=== PATIENT | female | born 1945 | race Caucasian/White ===

== ENCOUNTER 2018-07-01 14:08 | Emergency (ER) | payer SELFPAY ==
[~2018-07-01] VITALS: Ht 160 cm; Wt 44.0 kg
[~2018-07-01 14:08] MED LIST: AMLO10 PO; CARB200 PO; LOSA50 PO; NAPR220 PO; OXYB5 PO; VITAMIN D32000 UNIT PO
[2018-07-02] MEDS ORDERED: HYDMOR2 PO (15:36)
== END 2018-07-01 16:30 | disposition home or self-care (01) ==
LOC: ER 14:08
DX: M54.5 Low back pain (principal); I10 Essential (primary) hypertension; F17.200 Nicotine dependence, unspecified, uncomplicated; Z79.899 Other long term (current) drug therapy; W18.30XA Fall on same level, unspecified, initial encounter
CPT/HCPCS: 72100; 99283-25; A9270-GY

== ENCOUNTER 2018-07-02 13:58 | Emergency (ER) | payer SELFPAY ==
[~2018-07-02] VITALS: Ht 157.5 cm; Wt 44.0 kg
[2018-07-02] MEDS ORDERED: HYDMOR2 PO (15:36)
== END 2018-07-02 16:19 | disposition home or self-care (01) ==
LOC: ER 13:58
DX: S32.019A Unspecified fracture of first lumbar vertebra, initial encounter for closed fracture (principal); W18.30XA Fall on same level, unspecified, initial encounter; I10 Essential (primary) hypertension; F17.210 Nicotine dependence, cigarettes, uncomplicated
CPT/HCPCS: 99282

== ENCOUNTER 2018-11-20 08:17 | Emergency (ER) | payer OTHER ==
[~2018-11-20] VITALS: Ht 160 cm; Wt 38.1 kg
[~2018-11-20 08:17] MED LIST changes: +HYDMOR2 PO
[2018-11-20 09:05] LABS: BASOPHILS ABSOLUTE AUTO 0.03 K/mm3 (0.00-0.23); BASOPHILS PERCENT AUTO 0 % (0-2); EOSINOPHILS ABSOLUTE AUTO 0.02 K/mm3 (0.00-0.68); EOSINOPHILS PERCENT AUTO 0 % (0-6); Hematocrit 33.5 % (33.0-51.0); Hemoglobin 11.3 g/dL (11.5-16.0); IMMATURE GRAN ABSOLUTE AUTO 0.02 K/mm3 (0.00-0.10); IMMATURE GRAN PERCENT AUTO 0 % (0-1); LYMPHOCYTES ABSOLUTE AUTO 1.42 K/mm3 (0.84-5.20); LYMPHOCYTES PERCENT AUTO 15 % (21-46); MONOCYTES PERCENT AUTO 6 % (4-13); Mean Corpuscular HGB 33.7 pg (26.0-34.0); Mean Corpuscular HGB Conc 33.7 g/dL (31.5-36.5); Mean Corpuscular Volume 100 fL (80-100); Mean Platelet Volume 8.7 fL (9.1-12.4); NEUTROPHILS ABSOLUTE AUTO 7.34 K/mm3 (1.96-9.15); NEUTROPHILS PERCENT AUTO 78 % (41-73); Platelet Count 228 K/mm3 (150-400); RDW Coefficient Variation 11.9 % (11.7-14.2); RDW Standard Deviation 43.4 fL (35.1-46.3); Red Blood Cell Count 3.35 M/mm3 (3.80-5.20); White Blood Cell Count 9.43 K/mm3 (4.00-11.30)
[2018-11-20 09:20] LABS: Alanine Aminotransfer (ALT/SGP 24 U/L (12-78); Albumin, Blood 3.6 g/dL (3.4-5.0); Albumin/Globulin Ratio 0.9 (0.8-1.8); Alk Phos 111 U/L (50-136); Anion Gap 6 mmol/L (6-16); Aspartate Aminotrans (AST/SGOT 25 U/L (12-37); Bilirubin, Total 0.5 mg/dL (0.1-1.0); Blood Urea Nitrogen 23 mg/dL (8-24); Bun/Creatinine Ratio 40.4 (12.0-20.0); CO2, Blood 30 mmol/L (21-32); Calcium, Blood 9.3 mg/dL (8.5-10.1); Chloride, Blood 100 mmol/L (98-108); Creatinine, Blood 0.57 mg/dL (0.40-1.00); Globulin, Blood 3.9 g/dL (2.2-4.0); Glomerular Filtration Rate >60 (60-); Glucose, Blood 131 mg/dL (70-99); Potassium, Blood 3.1 mmol/L (3.5-5.5); Sodium, Blood 136 mmol/L (136-145); Total Protein, Blood 7.5 g/dL (6.4-8.2); Troponin I <0.015 ng/mL (0.000-0.040)
[2018-11-20 10:32] LABS: Source, Urine Clean Catch
[2018-11-20 10:37] LABS: Appearance, Urine Clear (Clear); Bilirubin, Urine Neg (Neg); Blood, Urine Neg (Neg); Color, Urine Yellow (P-Yellow); Glucose Qualitative, Urine Neg (Neg); Ketones, Urine Neg (Neg); Leukocyte Esterase, Urine Neg (Neg); Nitrite, Urine Pos (Neg); Protein, Urine Neg (Neg); Urobilinogen, Urine NORM (Normal)
[2018-11-20 10:47] LABS: Bacteria Many /hpf; Red Blood Cells, Urine 0-2 /hpf (0-2); Squamous Epithelial Cells Few /hpf (Few); White Blood Cells, Urine 0-2 /hpf (0-5)
[2018-11-20] MEDS ORDERED: Zofran4 MG PO (12:56)
[2018-11-20] MEDS ORDERED: CEPH500 PO (12:56)
== END 2018-11-20 15:49 | disposition home or self-care (01) ==
LOC: ER 08:17
PROVIDERS: Emergency Medicine
DX: N39.0 Urinary tract infection, site not specified (principal); E87.6 Hypokalemia; I10 Essential (primary) hypertension; F17.210 Nicotine dependence, cigarettes, uncomplicated
CPT/HCPCS: 36415; 80053; 81001; 83690; 84484; 85025; 87077; 87086; 87186; 93005; 93010; 96361; 96365; 99284-25; J0696; J7120

== ENCOUNTER 2018-12-10 10:56 | Inpatient (IN) | payer MEDICARE ==
[~2018-12-10] VITALS: Ht 167.6 cm; Wt 40.8 kg
[~2018-12-10 10:56] MED LIST changes: +CEPH500 PO; +Zofran4 MG PO
[2018-12-10] MEDS ORDERED: BENADRYL25 MG PO (11:09)
[2018-12-10] MEDS ORDERED: DONE5 PO (11:10)
[2018-12-10] MEDS ORDERED: TRAZ50 PO (11:10)
[2018-12-10] MEDS ORDERED: NAPR220 PO (11:10)
[2018-12-10] MEDS ORDERED: Oxybutynin Chlo10 MG PO (11:11)
[2018-12-10 12:26] LABS: Source, Urine Catheter
[2018-12-10 12:28] LABS: BASOPHILS PERCENT AUTO 0 % (0-2); EOSINOPHILS PERCENT AUTO 0 % (0-6); Hematocrit 35.9 % (33.0-51.0); Hemoglobin 11.6 g/dL (11.5-16.0); IMMATURE GRAN ABSOLUTE AUTO 0.02 K/mm3 (0.00-0.10); IMMATURE GRAN PERCENT AUTO 0 % (0-1); LYMPHOCYTES ABSOLUTE AUTO 1.35 K/mm3 (0.84-5.20); LYMPHOCYTES PERCENT AUTO 13 % (21-46); MONOCYTES PERCENT AUTO 7 % (4-13); Mean Corpuscular HGB 33.9 pg (26.0-34.0); Mean Corpuscular HGB Conc 32.3 g/dL (31.5-36.5); Mean Corpuscular Volume 105 fL (80-100); Mean Platelet Volume 8.6 fL (9.1-12.4); NEUTROPHILS ABSOLUTE AUTO 8.09 K/mm3 (1.96-9.15); NEUTROPHILS PERCENT AUTO 80 % (41-73); Platelet Count 241 K/mm3 (150-400); RDW Coefficient Variation 11.7 % (11.7-14.2); RDW Standard Deviation 45.4 fL (35.1-46.3); Red Blood Cell Count 3.42 M/mm3 (3.80-5.20); White Blood Cell Count 10.16 K/mm3 (4.00-11.30)
[2018-12-10 12:36] LABS: Bilirubin, Urine Neg (Neg); Blood, Urine Neg (Neg); Glucose Qualitative, Urine Neg (Neg); Ketones, Urine 2+ (Neg); Leukocyte Esterase, Urine 1+ (Neg); Nitrite, Urine Pos (Neg); Protein, Urine 2+ (Neg); Urobilinogen, Urine NORM (Normal)
[2018-12-10 12:46] LABS: Appearance, Urine Clear (Clear); Color, Urine Yellow (P-Yellow)
[2018-12-10 12:47] LABS: Alanine Aminotransfer (ALT/SGP 18 U/L (12-78); Albumin, Blood 3.9 g/dL (3.4-5.0); Alk Phos 103 U/L (50-136); Anion Gap 6 mmol/L (6-16); Aspartate Aminotrans (AST/SGOT 20 U/L (12-37); Bilirubin, Total 0.4 mg/dL (0.1-1.0); Blood Urea Nitrogen 22 mg/dL (8-24); Bun/Creatinine Ratio 36.1 (12.0-20.0); CO2, Blood 28 mmol/L (21-32); Calcium, Blood 9.6 mg/dL (8.5-10.1); Chloride, Blood 108 mmol/L (98-108); Creatinine, Blood 0.61 mg/dL (0.40-1.00); Globulin, Blood 3.9 g/dL (2.2-4.0); Glomerular Filtration Rate >60 (60-); Glucose, Blood 107 mg/dL (70-99); Magnesium, Blood 2.1 mg/dL (1.6-2.4); Potassium, Blood 3.9 mmol/L (3.5-5.5); Sodium, Blood 142 mmol/L (136-145); Total Protein, Blood 7.8 g/dL (6.4-8.2)
[2018-12-10 12:49] LABS: Bacteria Many /hpf; Red Blood Cells, Urine 0-2 /hpf (0-2); Squamous Epithelial Cells Few /hpf (Few)
[2018-12-10 14:42] LABS: Carbamazepine 20.7 ug/mL (4.0-12.0)
--- NOTE | 2018-12-10 15:30 | NUR ---
PT SETTLED TO BED. GIVES ALMOST NO ANSWERS. DID ONCE SAY NAME. NOT ABLE TO ANSWER ANYTHING ELSE. MOVING ARMS AND LEGS IN BED. BED ALARM ON FOR SAFETY, BED IN LOW POSITION, CALL LITE IN REACH.
--- NOTE | 2018-12-10 17:11 | NUR ---
Spiritual Care inital note: Asked by nursing to see this pt. Mrs. Pérez was alone in room, weak and restless, and confused. She was non-verbal. She appeared to calm through touch and warm assurance of care and attention. Prayer provided. I will remain available to pt and family.
--- NOTE | 2018-12-10 19:12 | NUR ---
PT STILL MOVING LEGS AND ARMS IN BED, WIGGLING ABOUT MUCH. NOT SPEAKING AT THIS TIME. BED IN LOW POSITION,C ALL LITE IN REACH, BED ALARM ON FOR SAFETY.
[2018-12-11 03:51] LABS: BASOPHILS ABSOLUTE AUTO 0.03 K/mm3 (0.00-0.23); BASOPHILS PERCENT AUTO 0 % (0-2); EOSINOPHILS PERCENT AUTO 0 % (0-6); Hematocrit 35.1 % (33.0-51.0); Hemoglobin 11.4 g/dL (11.5-16.0); IMMATURE GRAN ABSOLUTE AUTO 0.02 K/mm3 (0.00-0.10); IMMATURE GRAN PERCENT AUTO 0 % (0-1); LYMPHOCYTES ABSOLUTE AUTO 1.92 K/mm3 (0.84-5.20); LYMPHOCYTES PERCENT AUTO 22 % (21-46); MONOCYTES ABSOLUTE AUTO 0.56 K/mm3 (0.16-1.47); MONOCYTES PERCENT AUTO 6 % (4-13); Mean Corpuscular HGB 33.5 pg (26.0-34.0); Mean Corpuscular HGB Conc 32.5 g/dL (31.5-36.5); Mean Corpuscular Volume 103 fL (80-100); Mean Platelet Volume 8.5 fL (9.1-12.4); NEUTROPHILS ABSOLUTE AUTO 6.21 K/mm3 (1.96-9.15); NEUTROPHILS PERCENT AUTO 71 % (41-73); Platelet Count 223 K/mm3 (150-400); RDW Coefficient Variation 11.7 % (11.7-14.2); RDW Standard Deviation 44.8 fL (35.1-46.3); White Blood Cell Count 8.74 K/mm3 (4.00-11.30)
[2018-12-11 04:11] LABS: Alanine Aminotransfer (ALT/SGP 25 U/L (12-78); Albumin, Blood 3.6 g/dL (3.4-5.0); Alk Phos 95 U/L (50-136); Anion Gap 8 mmol/L (6-16); Aspartate Aminotrans (AST/SGOT 23 U/L (12-37); Bilirubin, Total 0.4 mg/dL (0.1-1.0); Blood Urea Nitrogen 15 mg/dL (8-24); Bun/Creatinine Ratio 28.8 (12.0-20.0); CO2, Blood 25 mmol/L (21-32); Calcium, Blood 8.6 mg/dL (8.5-10.1); Chloride, Blood 107 mmol/L (98-108); Creatinine, Blood 0.52 mg/dL (0.40-1.00); Globulin, Blood 3.6 g/dL (2.2-4.0); Glomerular Filtration Rate >60 (60-); Glucose, Blood 102 mg/dL (70-99); Potassium, Blood 3.2 mmol/L (3.5-5.5); Sodium, Blood 140 mmol/L (136-145); Total Protein, Blood 7.2 g/dL (6.4-8.2)
--- NOTE | 2018-12-11 04:37 | NUR ---
SHIFT SUMMARY: PT IS MINIMALLY REPSONSIVE AT THE START OF THE NIGHT, INCREASINGLY RESPONISVE NEAR MORNING, WAS ABLE TO TELL ME HER NAME AND ACKNOWLEDGE THAT SHE IS AT THE HOSPITAL. PT NOT OUT OF BED OVERNIGHT, TOO WEAK TO STAND AT THIS TIME. PT INCONTINENT SEVERAL TIMES, CHANGED AND CLEANED NEEDED. FLUIDS RUNNING ORDERED. PT KEPT NPO ORDERED. PT SHOWS NO S/S FOR PAIN, NAUSEA, VOMITING, OR SOB. PT ASLEEP MOST OF THE NIGHT. BED IN LOW POSITION, CALL LIGHT WITHIN REACH. WILL CONTINUE TO MONITOR.
--- NOTE | 2018-12-11 09:30 | NUR ---
PT PLEASANTLY CONFUSED. MORE AWAKE THAN LAST ARAM. TALKS, BUT CONFUSED. SAYS WANTS HER TO GO HOME. THEN STATES HUSB PASSED FEW MONTHS AGO. STATES THINKS AT HOSP. UNABLE TO TELL HOW OLD, DID GIVE . NOT AWARE OF MONTH OR YEAR. CALLS FOR HUSB AND BROTHER. H/R REG, NO MURMER NOTED. PER TELE NSR AT 79. LUNGS CLEEAR, RESP EASY, UNLABORED. ON R.A. BT X4 LAST BM UNKNOWN. QUITE THIN, EXPECT NOT EATING WELL. VOIDS INCONT IN ATTENDS. NOT TELLING STAFF WHEN WET. PT MOVING ABOUT BED CONSTANTLY. NOT FOLLOWING COMMANDS WELL. BED IN LOW POSITION, CALL LITE IN REACH, BED ALARM ON FOR SAFETY
--- NOTE | 2018-12-11 14:43 | NUR ---
RYAN, BROTHER CALLED [phone]. CALLED IN [place]. PT LIVES ALONE AT HOME. IN RECLINER MUCH OF TIME. USES WALKER AT BASELINE. POSS WHEELCHAIR. THINKS NEEDS HELP.
--- NOTE | 2018-12-11 15:00 | NUR ---
PT TALKING MORE. OFTEN NONSENSICAL. SOMETIMES CLOSER TO REALITY. INTERACTING BETTER. IMPROVEMENT NOTED
--- NOTE | 2018-12-11 17:08 | NUR ---
PT IMPROVED TODAY. DENIES PAIN. TALKING MUCH MORE. REMAINS MOSTLY NONSENSICAL. WATCHING FOOTBALL ON TV. SAYS ALANPierre WATCHES ALL TIME. NOT ATTEMPTING TO GET OUT OF BED, BUT IS QUITE BUSY IN BED. TALKS WHEN TALKED TO, SOMETIMES CALLS OUT, REORIENTS TO SOME DEGREE. ASKS TO GO HOME. NO OTHER CONCERNS AT THIS TIME. BED IN LOW POSITION, CALL LITE IN REACH, BED ALARM ON FOR SAFETY
--- NOTE | 2018-12-11 20:57 | NUR ---
MOVED TO ROOM 10 FOR CLOSER OBSERVATION, PATIENT IS CONFUSED AND SHOUTING OUT.
--- NOTE | 2018-12-12 00:43 | NUR ---
RESTRAINTS: PATIENT PULLED OUT BOTH IV'S, TAKING OFF CLOTHING, TRYING TO GET OOB AND YELLING 'RYAN GET IN HERE AND TAKE ME HOME" (RYAN IS HER BROTHER WHO IS IN [place] AT THIS TIME). PATIENT STATES SHE HEARS HIM TALKING TO HER AND STAFF IS UNABLE TO CONVINCE HER OTHERWISE. MD NOTIFIED AND ORDERS RECIEVED. PATIENT PLACED IN BILATERAL SOFT WRIST RESTARAINTS AND ANOTHE IV WAS STARTED. ASSESSING AND MONITORING CLOSELY WITH INCREASED STAFF ROUNDING. PATIENT MOVED TO ROOM PCU10 TO BE EASILY VISUALIZED BY STAFF.
--- NOTE | 2018-12-12 00:49 | NUR ---
STILL UNABLE TO COMPLETE ADMISSION HX DUE TO PATIENT CONFUSION
[2018-12-12 04:07] LABS: Anion Gap 11 mmol/L (6-16); Blood Urea Nitrogen 12 mg/dL (8-24); Bun/Creatinine Ratio 21.7 (12.0-20.0); CO2, Blood 23 mmol/L (21-32); Calcium, Blood 8.4 mg/dL (8.5-10.1); Chloride, Blood 105 mmol/L (98-108); Creatinine, Blood 0.55 mg/dL (0.40-1.00); Glomerular Filtration Rate >60 (60-); Glucose, Blood 89 mg/dL (70-99); Magnesium, Blood 1.4 mg/dL (1.6-2.4); Sodium, Blood 139 mmol/L (136-145)
--- NOTE | 2018-12-12 05:40 | NUR ---
SHIFT SUMMARY: APPROX 0400 PATIENT STATED THAT SHE SHOULD NOT BE ALIVE RIGHT NOW, WHEN ASKED WHAT SHE MEANT SHE SAID SHE 'SHOULD BE AFTER TAKING THE PILLS'. I ASKED WHAT PILLS SHE MEANT AND SHE SAID, "I TOOK THE WHOLE BOTTLE OF TEGRITOL, I AM SUPPOSED TO BE . MY NEIGHBORS WILL TAKE MY DOG, HE WILL BE SAFE." MD NOTIFIED AND PATIENT PLACED ON LOW SUICIDE PRECAUTIONS. PATIENT IS CONFUSED BUT SEEMS TO HAVE INTERMITTENT PERIODS OF CLARITY.
--- NOTE | 2018-12-12 08:54 | NUR ---
AM NOTE. ASSUMED CARE OF PT APROX 0700, PT IS A&Ox4 WITH MOMENTS OF CONFUSION. PT WAS ADMITTED FOR AMS AND WAS FOUND TO HAVE UTI, PT ALSO ADMITTED TO OVER TAKING HER TEGRATOL MEDICATION AT HOME IN A SUICIDE ATTEMPT. PT IS IN NSR, L/S CLEAR T/O DIM IN THE BASES. BT PRESENT AND NORMOACTIVE. ABD IS SOFT AND NONTENDER TO PALP. PT KEEPS ASKING ABOUT HER BROTHER RYAN, WILL ATTEMPT TO FIND HIS CONTACT INFORMATION. CALL LIGHT IN REACH, BED IS LOCKED AND LOW WILL CONTINUE TO MONITOR.
--- NOTE | 2018-12-12 16:38 | NUR ---
PT UPDATE... PT HAS BEEN CALM AND COOPERATAIVE ALL SHIFT UNTIL APROX 30MINS AGO. PT IS GETTING MORE AGITATED AND CONFUSED STATING "I WANT TO GO HOME, I'LL SIGN ALL THE PAPERS BUT I AM GOING HOME." PT WAS REDIRECTED AND UPDATED ON HER CONDITION. WILL CONTINUE TO MONITOR
--- NOTE | 2018-12-12 18:26 | NUR ---
SHIFT SUMMARY. NO ACUTE NEGATIVE CHANGES NOTED THIS SHIFT. PT'S VS HAVE BEEN STABLE. PT'S AGITATION HAS DECREASED. PT WAS HELPED TO SIT ON THE SIDE OF THE BED AND SHE WAS GIVEN A BEDBATH. PT STATED SHE NEEDED TO HAVE A BM, PT WAS HELPED WITH 2 PEOPLE AND GAIT BELT TO THE BSC. PT TOLERATED THIS WELL, PT'S LEG WERE WEAK BUT PT FOLLOWED DIRECTIONS AND WAS COOPERATIVE. PT SAT UP IN THE CHAIR AFTER USING THE BSC, PT HAD LARGE BM BUT WAS INCONT OF URINE. PT HAS SPOKEN TO HER BROTHER ON THE PHONE MULTIPLE TIMES TODAY. PT SAT UP AND ATE DINNER IN THE CHAIR AND THEN WAS TRANSFERED BACK INTO BED, BED ALARM IS SET. CALL LIGHT IN REACH, BED IS LOCKED AND LOW WILL CONTINUE TO MONITOR UNTIL REPORT IS GIVEN TO ONCOMING RN.
[2018-12-13 04:36] LABS: Anion Gap 6 mmol/L (6-16); Blood Urea Nitrogen 15 mg/dL (8-24); Bun/Creatinine Ratio 29.9 (12.0-20.0); CO2, Blood 25 mmol/L (21-32); Calcium, Blood 8.2 mg/dL (8.5-10.1); Chloride, Blood 105 mmol/L (98-108); Glomerular Filtration Rate >60 (60-); Glucose, Blood 98 mg/dL (70-99); Potassium, Blood 3.7 mmol/L (3.5-5.5); Sodium, Blood 136 mmol/L (136-145)
--- NOTE | 2018-12-13 06:24 | NUR ---
alert and orintated, some opinions expressed by pt do not appear to be based on the reality shared by the staff, call light in reach and frequently used, saline locked, looking forward to moving to tx but remains focused on and dying, will continue to monitor and treat until provide bsr to oncoming day nurse and staff
--- NOTE | 2018-12-13 08:30 | NUR ---
AM NOTE. ASSUMED CARE OF PT APROX 0700 PT IS A&Ox4 AND SBA/2P TO THE CHAIR OR BSC. PT WAS ADMITTED FOR AMS BUT THIS IS IMPROVING. PT'S VS STABLE AT THIS TIME. PT IS IN NSR IN THE 70'S-80'S. NO EDEMA IS NOTED ON ASSESSMENT. L/S CLEAR PT IS ON RA WITH O2 SATS >95%. BT PRESENT AND HYPOACTIVE, ABD IS SOFT AND NONTENDER TO PALP. CALL LIGHT IN REACH, BED IS LOCKED AND LOW WILL CONTINUE TO MONITOR.
--- NOTE | 2018-12-13 18:35 | NUR ---
SHIFT SUMMARY. NO ACUTE NEGATIVE CHANGES NOTED THIS SHIFT. PT'S VS HAVE BEEN STABLE. PT HAS BEEN VERY ANXIOUS TO GO HOME. PT DENIES ANY CHEST PAIN/PRESSURE N/V OR SOB. PT HAS BEEN A&Ox4 T/O SHIFT. PT HAS BEEN INCONT OF URINE ALL SHIFT. CALL LIGHT IN REACH, BED IS LOCKED AND LOW WILL CONTINUE TO MONITOR UNTIL REPORT IS GIVEN TO ONCOMING RN.
--- NOTE | 2018-12-14 06:47 | NUR ---
SHIFT SUMMARY PT CONTINUES TO ANSWER ORIENTATION QUESTIONS APPROPRIATELY THROUGHOUT THE NIGHT, BUT ALSO CONTINUES TO HAVE OCCASIONAL NONSENSICAL THOUGHTS AND WILL RAMBLE TO NO ONE AFTER STAFF LEAVES THE ROOM. PT REMAINS COOPERATIVE WITH CARE. VSS. PT CONTINUES TO EXPRESS WANT TO GO HOME, BUT HAS NOT BECOME IRRITABLE WITH STAFF THROUGHOUT THE NIGHT. PT HAS SLEPT MINIMALLY, CONTINUES TO DENY FEELING TIRED OR DESIRE TO SLEEP. AMBULATES WITH 1-2 PERSON ASSIST AND FWW TO [place] [facility] [place], BUT REMAINS MOSTLY INCONTINENT OF URINE. NO OTHER CHANGES NOTED FROM INITIAL ASSESSMENT. WILL CONTINUE TO MONITOR AND REPORT TO ONCOMING SHIFT RN. BED IN LOW POSITION, CALL LIGHT IN REACH. BED ALARM SET FOR SAFETY.
--- NOTE | 2018-12-14 09:07 | NUR ---
AM NOTE. ASSUMED CARE OF PT APROX 0700, PT IS A&Ox4 FORGETFUL OF THE DATE. PT WAS ADMITTED FOR AMS/ENCEPHALOPATHY. PT'S VS STABLE AT THIS TIME. PT DENIES ANY CHEST PAIN/PRESSURE N/V OR SOB. PT IS ANXIOUS ABOUT LEAVING AND GOING HOME. HOWEVER THIS RN IS CONCERNED ABOUT HER SAFETY AT HOME AND ABILITY TO CARE FOR HERSELF, PT HAS NO FAMILY IN TOWN AND VERY LITTLE RESOURCES OR HELP AVAILABLE TO HER. WILL CONTINUE TO MONITOR.
[2018-12-14] MEDS ORDERED: CIPRO500 MG PO (11:31)
--- NOTE | 2018-12-14 14:39 | NUR ---
PT D/C. PT WAS D/C'D HOME. MEDICATIONS SENT TO PT'S PHARMACY OF CHOICE, MEDICATION EDUCATION AND D/C INSTRUCTIONS PROVIDED TO PT. IV WAS REMOVED WNL. PT DENIED CHEST PAIN/PRESSURE N/V OR SOB.
== END 2018-12-14 14:00 | disposition home or self-care (01) | DRG 689 ==
LOC: ER 10:56 → PCU 14:04
PROVIDERS: Emergency Medicine; Nurse Practitioner Acute Care; ADMIT Internal Medicine
DX: N39.0 Urinary tract infection, site not specified (principal); G92 Toxic encephalopathy; T42.1X1A Poisoning by iminostilbenes, accidental (unintentional), initial encounter; F32.9 Major depressive disorder, single episode, unspecified; I10 Essential (primary) hypertension; G40.909 Epilepsy, unspecified, not intractable, without status epilepticus; F03.90 Unspecified dementia, unspecified severity, without behavioral disturbance, psychotic disturbance, mood disturbance, and anxiety; Z66 Do not resuscitate; B96.20 Unspecified Escherichia coli [E. coli] as the cause of diseases classified elsewhere; E87.6 Hypokalemia; E83.42 Hypomagnesemia; E86.0 Dehydration; Z88.8 Allergy status to other drugs, medicaments and biological substances; Z88.6 Allergy status to analgesic agent; Z91.012 Allergy to eggs; Z91.5 Personal history of self-harm
CPT/HCPCS: 36415; 70450; 71046; 80048; 80053; 80156; 81001; 83605; 83735; 85025; 87040; 87077; 87086; 87186; 92526; 92610; 93005; 93010; 96361; 96365; 97116; 97162; 97166; 97530; 97535; 99285-25; J0696; J1650; J1956; J3475; J7030; J7060; P9612

== ENCOUNTER 2019-04-19 14:42 | Emergency (ER) | payer OTHER ==
[~2019-04-19] VITALS: Ht 157.5 cm; Wt 52.2 kg
[~2019-04-19 14:42] MED LIST changes: -AMLO10 PO; +BENADRYL25 MG PO; +CIPRO500 MG PO; +DONE5 PO; +TRAZ50 PO
[2019-04-19 15:05] LABS: BASOPHILS ABSOLUTE AUTO 0.03 K/mm3 (0.00-0.23); BASOPHILS PERCENT AUTO 0 % (0-2); EOSINOPHILS ABSOLUTE AUTO 0.07 K/mm3 (0.00-0.68); EOSINOPHILS PERCENT AUTO 1 % (0-6); Hemoglobin 11.3 g/dL (11.5-16.0); IMMATURE GRAN ABSOLUTE AUTO 0.02 K/mm3 (0.00-0.10); IMMATURE GRAN PERCENT AUTO 0 % (0-1); LYMPHOCYTES ABSOLUTE AUTO 2.13 K/mm3 (0.84-5.20); LYMPHOCYTES PERCENT AUTO 27 % (21-46); MONOCYTES ABSOLUTE AUTO 0.62 K/mm3 (0.16-1.47); MONOCYTES PERCENT AUTO 8 % (4-13); Mean Corpuscular HGB 33.4 pg (26.0-34.0); Mean Corpuscular HGB Conc 33.2 g/dL (31.5-36.5); Mean Corpuscular Volume 101 fL (80-100); Mean Platelet Volume 8.8 fL (9.1-12.4); NEUTROPHILS ABSOLUTE AUTO 4.96 K/mm3 (1.96-9.15); NEUTROPHILS PERCENT AUTO 63 % (41-73); Platelet Count 180 K/mm3 (150-400); RDW Coefficient Variation 12.2 % (11.7-14.2); RDW Standard Deviation 45.1 fL (35.1-46.3); Red Blood Cell Count 3.38 M/mm3 (3.80-5.20); White Blood Cell Count 7.83 K/mm3 (4.00-11.30)
[2019-04-19 15:29] LABS: Prothrombin Time Results 10.7 Sec (9.7-11.5)
[2019-04-19 15:39] LABS: Alanine Aminotransfer (ALT/SGP 17 U/L (12-78); Albumin, Blood 3.8 g/dL (3.4-5.0); Alk Phos 100 U/L (50-136); Anion Gap 6 mmol/L (6-16); Aspartate Aminotrans (AST/SGOT 19 U/L (12-37); Bilirubin, Total 0.6 mg/dL (0.1-1.0); Blood Urea Nitrogen 15 mg/dL (8-24); Bun/Creatinine Ratio 23.1 (12.0-20.0); CO2, Blood 29 mmol/L (21-32); Calcium, Blood 9.1 mg/dL (8.5-10.1); Chloride, Blood 106 mmol/L (98-108); Creatinine, Blood 0.65 mg/dL (0.40-1.00); Ethanol (Alcohol), Blood, Med <3 mg/dL; Globulin, Blood 3.7 g/dL (2.2-4.0); Glomerular Filtration Rate >60 (60-); Glucose, Blood 95 mg/dL (70-99); Potassium, Blood 3.3 mmol/L (3.5-5.5); Sodium, Blood 141 mmol/L (136-145); Total Protein, Blood 7.5 g/dL (6.4-8.2)
[2019-04-19 16:58] LABS: U Amphetamine Screen Not Detected; U Barbituate Screen Not Detected; U Benzodiazapine Screen Not Detected; U Buprenorphine Screen Not Detected; U Cannabinoids Screen Not Detected; U Cocaine Screen Not Detected; U Methadone Screen Not Detected; U Methamphetamine Screen Not Detected; U Opiates Screen Not Detected; U Oxycodone Screen Not Detected; U Propoxyphene Screen Not Detected
[2019-04-19] MEDS ORDERED: OXYB5 PO (18:31)
[2019-04-19] MEDS ORDERED: AMLO10 PO (18:31)
[2019-04-19] MEDS ORDERED: NAPR500 PO (18:32)
[2019-04-19] MEDS ORDERED: Hair, Skin & N1 EACH PO (18:32)
[2019-04-19] MEDS ORDERED: CARB200 PO (18:32)
[2019-04-19 20:21] LABS: Carbamazepine 19.7 ug/mL (4.0-12.0)
== END 2019-04-19 19:40 | disposition left against medical advice (07) ==
LOC: ER 14:42
PROVIDERS: Internal Medicine; Physician Assistant
DX: I63.9 Cerebral infarction, unspecified (principal); R47.01 Aphasia; R47.81 Slurred speech; I10 Essential (primary) hypertension; F17.210 Nicotine dependence, cigarettes, uncomplicated; Z91.012 Allergy to eggs; Z88.6 Allergy status to analgesic agent; Z88.8 Allergy status to other drugs, medicaments and biological substances; Z79.899 Other long term (current) drug therapy
CPT/HCPCS: 36415; 70450; 80053; 80156; 82947; 83605; 84146; 85025; 85610; 93005; 93010; 96360; 96361; 99285-25; G0480; J7030; P9612

== ENCOUNTER 2019-05-14 15:04 | Inpatient (IN) | payer OTHER, MEDICARE ==
[~2019-05-14] VITALS: Ht 157.5 cm; Wt 35.5 kg
[~2019-05-14 15:04] MED LIST changes: +AMLO10 PO; +Hair, Skin & N1 EACH PO; +Naproxen250 MG PO
[2019-05-14] MEDS ORDERED: Super B-50 Com1 EACH PO (15:13)
[2019-05-14 15:26] LABS: BASOPHILS ABSOLUTE AUTO 0.03 K/mm3 (0.00-0.23); BASOPHILS PERCENT AUTO 0 % (0-2); EOSINOPHILS ABSOLUTE AUTO 0.03 K/mm3 (0.00-0.68); EOSINOPHILS PERCENT AUTO 0 % (0-6); Hematocrit 32.2 % (33.0-51.0); Hemoglobin 10.7 g/dL (11.5-16.0); IMMATURE GRAN ABSOLUTE AUTO 0.01 K/mm3 (0.00-0.10); IMMATURE GRAN PERCENT AUTO 0 % (0-1); LYMPHOCYTES ABSOLUTE AUTO 3.21 K/mm3 (0.84-5.20); LYMPHOCYTES PERCENT AUTO 40 % (21-46); MONOCYTES ABSOLUTE AUTO 0.53 K/mm3 (0.16-1.47); MONOCYTES PERCENT AUTO 7 % (4-13); Mean Corpuscular HGB 33.8 pg (26.0-34.0); Mean Corpuscular HGB Conc 33.2 g/dL (31.5-36.5); Mean Corpuscular Volume 102 fL (80-100); NEUTROPHILS ABSOLUTE AUTO 4.27 K/mm3 (1.96-9.15); NEUTROPHILS PERCENT AUTO 53 % (41-73); Platelet Count 240 K/mm3 (150-400); RDW Coefficient Variation 12.1 % (11.7-14.2); RDW Standard Deviation 45.9 fL (35.1-46.3); Red Blood Cell Count 3.17 M/mm3 (3.80-5.20); White Blood Cell Count 8.08 K/mm3 (4.00-11.30)
[2019-05-14 15:55] LABS: Source, Urine Catheter
[2019-05-14 15:56] LABS: Alanine Aminotransfer (ALT/SGP 16 U/L (12-78); Albumin, Blood 3.5 g/dL (3.4-5.0); Alk Phos 86 U/L (50-136); Anion Gap 4 mmol/L (6-16); Aspartate Aminotrans (AST/SGOT 19 U/L (12-37); Bilirubin, Total 0.5 mg/dL (0.1-1.0); Blood Urea Nitrogen 18 mg/dL (8-24); Bun/Creatinine Ratio 29.2 (12.0-20.0); CO2, Blood 24 mmol/L (21-32); Calcium, Blood 9.1 mg/dL (8.5-10.1); Chloride, Blood 106 mmol/L (98-108); Creatinine, Blood 0.62 mg/dL (0.40-1.00); Ethanol (Alcohol), Blood, Med <3 mg/dL; Globulin, Blood 3.6 g/dL (2.2-4.0); Glomerular Filtration Rate >60 (60-); Glucose, Blood 154 mg/dL (70-99); Potassium, Blood 3.1 mmol/L (3.5-5.5); Sodium, Blood 134 mmol/L (136-145); Total Protein, Blood 7.1 g/dL (6.4-8.2)
[2019-05-14 15:59] LABS: Bilirubin, Urine Neg (Neg); Blood, Urine 1+ (Neg); Glucose Qualitative, Urine Neg (Neg); Ketones, Urine 1+ (Neg); Leukocyte Esterase, Urine 1+ (Neg); Nitrite, Urine Pos (Neg); Protein, Urine 2+ (Neg); Specific Gravity, Urine 1.015 (1.003-1.022); Urobilinogen, Urine NORM (Normal)
[2019-05-14 16:00] LABS: Appearance, Urine Cloudy (Clear); Color, Urine Yellow (P-Yellow)
[2019-05-14 16:08] LABS: Amorphous Mod (0-Heavy); Bacteria Many /hpf; Mucus Light (0-Heavy); Red Blood Cells, Urine 0-2 /hpf (0-2); Squamous Epithelial Cells Few /hpf (Few)
[2019-05-14 16:09] LABS: U Amphetamine Screen Not Detected; U Barbituate Screen Not Detected; U Benzodiazapine Screen Not Detected; U Buprenorphine Screen Not Detected; U Cannabinoids Screen Not Detected; U Cocaine Screen Not Detected; U Methadone Screen Not Detected; U Methamphetamine Screen Not Detected; U Opiates Screen Not Detected; U Oxycodone Screen Not Detected; U Phencyclidine Screen Not Detected; U Propoxyphene Screen Not Detected
[2019-05-14 16:33] LABS: Acetaminophen, Random <2.0 ug/mL (10.0-30.0); Salicylate 6.1 mg/dL (2.8-20.0)
[2019-05-14 16:34] LABS: Carbamazepine 32.2 ug/mL (4.0-12.0)
[2019-05-14 17:36] LABS: CPK Creatine Kinase 33 U/L (26-193); Creatine Kinase MB <1.0 ng/mL (0.0-3.6); Creatine Kinase MB Index Unable to Calculate (0.0-4.0); Magnesium, Blood 1.9 mg/dL (1.6-2.4); Phosphorus, Blood 2.6 mg/dL (2.5-4.9); Troponin I <0.015 ng/mL (0.000-0.040)
[2019-05-14 18:58] LABS: Carbamazepine 34.2 ug/mL (4.0-12.0)
[2019-05-14 23:55] LABS: Carbamazepine 26.7 ug/mL (4.0-12.0)
[2019-05-15 05:57] LABS: Creatine Kinase MB 1.5 ng/mL (0.0-3.6); Creatine Kinase MB Index 2.5 (0.0-4.0); Magnesium, Blood 1.7 mg/dL (1.6-2.4); Phosphorus, Blood 2.4 mg/dL (2.5-4.9); Troponin I 0.152 ng/mL (0.000-0.040)
[2019-05-15 06:12] LABS: Carbamazepine 24.8 ug/mL (4.0-12.0)
[2019-05-15 09:10] LABS: BASOPHILS ABSOLUTE AUTO 0.02 K/mm3 (0.00-0.23); BASOPHILS PERCENT AUTO 0 % (0-2); EOSINOPHILS ABSOLUTE AUTO 0.01 K/mm3 (0.00-0.68); EOSINOPHILS PERCENT AUTO 0 % (0-6); Hematocrit 30.3 % (33.0-51.0); Hemoglobin 9.8 g/dL (11.5-16.0); IMMATURE GRAN ABSOLUTE AUTO 0.01 K/mm3 (0.00-0.10); IMMATURE GRAN PERCENT AUTO 0 % (0-1); LYMPHOCYTES ABSOLUTE AUTO 1.76 K/mm3 (0.84-5.20); LYMPHOCYTES PERCENT AUTO 25 % (21-46); MONOCYTES ABSOLUTE AUTO 0.56 K/mm3 (0.16-1.47); MONOCYTES PERCENT AUTO 8 % (4-13); Mean Corpuscular HGB Conc 32.3 g/dL (31.5-36.5); NEUTROPHILS ABSOLUTE AUTO 4.78 K/mm3 (1.96-9.15); NEUTROPHILS PERCENT AUTO 67 % (41-73); Platelet Count 178 K/mm3 (150-400); RDW Coefficient Variation 12.2 % (11.7-14.2); RDW Standard Deviation 47.1 fL (35.1-46.3); Red Blood Cell Count 2.88 M/mm3 (3.80-5.20); White Blood Cell Count 7.14 K/mm3 (4.00-11.30)
[2019-05-15 09:11] LABS: Mean Corpuscular Volume 105 fL (80-100)
[2019-05-15 09:31] LABS: Alanine Aminotransfer (ALT/SGP 15 U/L (12-78); Albumin/Globulin Ratio 0.9 (0.8-1.8); Alk Phos 75 U/L (50-136); Anion Gap 5 mmol/L (6-16); Aspartate Aminotrans (AST/SGOT 19 U/L (12-37); Bilirubin, Total 0.3 mg/dL (0.1-1.0); Blood Urea Nitrogen 13 mg/dL (8-24); Bun/Creatinine Ratio 29.7 (12.0-20.0); CO2, Blood 23 mmol/L (21-32); Calcium, Blood 8.3 mg/dL (8.5-10.1); Chloride, Blood 114 mmol/L (98-108); Creatinine, Blood 0.44 mg/dL (0.40-1.00); Globulin, Blood 3.5 g/dL (2.2-4.0); Glomerular Filtration Rate >60 (60-); Glucose, Blood 87 mg/dL (70-99); Potassium, Blood 3.9 mmol/L (3.5-5.5); Sodium, Blood 142 mmol/L (136-145); Total Protein, Blood 6.5 g/dL (6.4-8.2)
[2019-05-15 15:20] LABS: Base Excess Venous -5.6 mmol/L; Bicarbonate Venous 19.8 mmol/L (24.0-30.0); PCO2 Venous 33.7 mmHg (38-42); PO2 Venous 36.5 mmHg (38-42); pH Blood Venous 7.37 (7.34-7.37)
[2019-05-15 15:39] LABS: BASOPHILS ABSOLUTE AUTO 0.02 K/mm3 (0.00-0.23); BASOPHILS PERCENT AUTO 0 % (0-2); EOSINOPHILS ABSOLUTE AUTO 0.02 K/mm3 (0.00-0.68); EOSINOPHILS PERCENT AUTO 0 % (0-6); Hematocrit 28.3 % (33.0-51.0); Hemoglobin 9.3 g/dL (11.5-16.0); IMMATURE GRAN ABSOLUTE AUTO 0.02 K/mm3 (0.00-0.10); IMMATURE GRAN PERCENT AUTO 0 % (0-1); LYMPHOCYTES ABSOLUTE AUTO 1.87 K/mm3 (0.84-5.20); LYMPHOCYTES PERCENT AUTO 31 % (21-46); MONOCYTES PERCENT AUTO 7 % (4-13); Mean Corpuscular HGB 34.3 pg (26.0-34.0); Mean Corpuscular HGB Conc 32.9 g/dL (31.5-36.5); Mean Corpuscular Volume 104 fL (80-100); NEUTROPHILS ABSOLUTE AUTO 3.71 K/mm3 (1.96-9.15); NEUTROPHILS PERCENT AUTO 62 % (41-73); Platelet Count 188 K/mm3 (150-400); RDW Coefficient Variation 12.3 % (11.7-14.2); RDW Standard Deviation 47.2 fL (35.1-46.3); Red Blood Cell Count 2.71 M/mm3 (3.80-5.20); White Blood Cell Count 6.04 K/mm3 (4.00-11.30)
[2019-05-15 15:47] LABS: Anion Gap 2 mmol/L (6-16); Blood Urea Nitrogen 12 mg/dL (8-24); Bun/Creatinine Ratio 24.4 (12.0-20.0); CO2, Blood 22 mmol/L (21-32); Calcium, Blood 7.7 mg/dL (8.5-10.1); Chloride, Blood 119 mmol/L (98-108); Creatinine, Blood 0.49 mg/dL (0.40-1.00); Glomerular Filtration Rate >60 (60-); Glucose, Blood 116 mg/dL (70-99); Potassium, Blood 4.2 mmol/L (3.5-5.5); Sodium, Blood 143 mmol/L (136-145)
[2019-05-15 15:58] LABS: International Normalized Ratio 1.07; Prothrombin Time Results 11.4 Sec (9.7-11.5)
[2019-05-15 17:44] LABS: Carbamazepine 30.4 ug/mL (4.0-12.0)
[2019-05-15 23:36] LABS: Salicylate 6.8 mg/dL (2.8-20.0)
[2019-05-16 04:47] LABS: BASOPHILS ABSOLUTE AUTO 0.02 K/mm3 (0.00-0.23); BASOPHILS PERCENT AUTO 0 % (0-2); EOSINOPHILS PERCENT AUTO 0 % (0-6); Hematocrit 30.2 % (33.0-51.0); IMMATURE GRAN ABSOLUTE AUTO 0.06 K/mm3 (0.00-0.10); IMMATURE GRAN PERCENT AUTO 1 % (0-1); LYMPHOCYTES ABSOLUTE AUTO 0.59 K/mm3 (0.84-5.20); LYMPHOCYTES PERCENT AUTO 5 % (21-46); MONOCYTES ABSOLUTE AUTO 0.71 K/mm3 (0.16-1.47); MONOCYTES PERCENT AUTO 6 % (4-13); Mean Corpuscular HGB 34.8 pg (26.0-34.0); Mean Corpuscular HGB Conc 33.1 g/dL (31.5-36.5); Mean Corpuscular Volume 105 fL (80-100); Mean Platelet Volume 9.2 fL (9.1-12.4); NEUTROPHILS ABSOLUTE AUTO 10.24 K/mm3 (1.96-9.15); NEUTROPHILS PERCENT AUTO 88 % (41-73); Platelet Count 146 K/mm3 (150-400); RDW Coefficient Variation 12.4 % (11.7-14.2); RDW Standard Deviation 48.3 fL (35.1-46.3); Red Blood Cell Count 2.87 M/mm3 (3.80-5.20); White Blood Cell Count 11.62 K/mm3 (4.00-11.30)
[2019-05-16 05:02] LABS: Anion Gap 5 mmol/L (6-16); Blood Urea Nitrogen 16 mg/dL (8-24); Bun/Creatinine Ratio 26.4 (12.0-20.0); CO2, Blood 22 mmol/L (21-32); Calcium, Blood 7.8 mg/dL (8.5-10.1); Chloride, Blood 120 mmol/L (98-108); Creatinine, Blood 0.61 mg/dL (0.40-1.00); Glomerular Filtration Rate >60 (60-); Glucose, Blood 104 mg/dL (70-99); Magnesium, Blood 1.6 mg/dL (1.6-2.4); Potassium, Blood 4.1 mmol/L (3.5-5.5); Sodium, Blood 147 mmol/L (136-145)
[2019-05-16 07:54] LABS: Carbamazepine 20.6 ug/mL (4.0-12.0)
[2019-05-16 23:57] LABS: Carbamazepine 22.8 ug/mL (4.0-12.0)
[2019-05-17 05:19] LABS: BASOPHILS ABSOLUTE AUTO 0.02 K/mm3 (0.00-0.23); BASOPHILS PERCENT AUTO 0 % (0-2); EOSINOPHILS PERCENT AUTO 0 % (0-6); Hematocrit 24.7 % (33.0-51.0); Hemoglobin 8.2 g/dL (11.5-16.0); IMMATURE GRAN ABSOLUTE AUTO 0.04 K/mm3 (0.00-0.10); IMMATURE GRAN PERCENT AUTO 1 % (0-1); LYMPHOCYTES ABSOLUTE AUTO 1.23 K/mm3 (0.84-5.20); LYMPHOCYTES PERCENT AUTO 17 % (21-46); MONOCYTES ABSOLUTE AUTO 0.44 K/mm3 (0.16-1.47); MONOCYTES PERCENT AUTO 6 % (4-13); Mean Corpuscular HGB 34.5 pg (26.0-34.0); Mean Corpuscular HGB Conc 33.2 g/dL (31.5-36.5); Mean Corpuscular Volume 104 fL (80-100); Mean Platelet Volume 9.4 fL (9.1-12.4); NEUTROPHILS ABSOLUTE AUTO 5.38 K/mm3 (1.96-9.15); NEUTROPHILS PERCENT AUTO 76 % (41-73); Platelet Count 112 K/mm3 (150-400); RDW Coefficient Variation 12.8 % (11.7-14.2); RDW Standard Deviation 47.8 fL (35.1-46.3); Red Blood Cell Count 2.38 M/mm3 (3.80-5.20); White Blood Cell Count 7.11 K/mm3 (4.00-11.30)
[2019-05-17 05:42] LABS: Anion Gap 4 mmol/L (6-16); Blood Urea Nitrogen 26 mg/dL (8-24); Bun/Creatinine Ratio 46.5 (12.0-20.0); CO2, Blood 25 mmol/L (21-32); Calcium, Blood 8.1 mg/dL (8.5-10.1); Chloride, Blood 117 mmol/L (98-108); Creatinine, Blood 0.56 mg/dL (0.40-1.00); Glomerular Filtration Rate >60 (60-); Glucose, Blood 130 mg/dL (70-99); Magnesium, Blood 1.9 mg/dL (1.6-2.4); Phosphorus, Blood 1.9 mg/dL (2.5-4.9); Potassium, Blood 3.4 mmol/L (3.5-5.5); Sodium, Blood 146 mmol/L (136-145)
[2019-05-17 05:51] LABS: Carbamazepine 17.7 ug/mL (4.0-12.0)
[2019-05-17 12:21] LABS: Carbamazepine 17.8 ug/mL (4.0-12.0)
[2019-05-18 04:35] LABS: BASOPHILS ABSOLUTE AUTO 0.05 K/mm3 (0.00-0.23); BASOPHILS PERCENT AUTO 1 % (0-2); EOSINOPHILS ABSOLUTE AUTO 0.02 K/mm3 (0.00-0.68); EOSINOPHILS PERCENT AUTO 0 % (0-6); Hematocrit 26.4 % (33.0-51.0); IMMATURE GRAN ABSOLUTE AUTO 0.03 K/mm3 (0.00-0.10); IMMATURE GRAN PERCENT AUTO 0 % (0-1); LYMPHOCYTES ABSOLUTE AUTO 1.58 K/mm3 (0.84-5.20); LYMPHOCYTES PERCENT AUTO 18 % (21-46); MONOCYTES ABSOLUTE AUTO 0.57 K/mm3 (0.16-1.47); MONOCYTES PERCENT AUTO 6 % (4-13); Mean Corpuscular HGB 34.5 pg (26.0-34.0); Mean Corpuscular HGB Conc 34.1 g/dL (31.5-36.5); Mean Corpuscular Volume 101 fL (80-100); Mean Platelet Volume 9.8 fL (9.1-12.4); NEUTROPHILS ABSOLUTE AUTO 6.67 K/mm3 (1.96-9.15); NEUTROPHILS PERCENT AUTO 75 % (41-73); Platelet Count 124 K/mm3 (150-400); RDW Coefficient Variation 12.6 % (11.7-14.2); RDW Standard Deviation 46.8 fL (35.1-46.3); Red Blood Cell Count 2.61 M/mm3 (3.80-5.20); White Blood Cell Count 8.92 K/mm3 (4.00-11.30)
[2019-05-18 05:02] LABS: Alanine Aminotransfer (ALT/SGP 417 U/L (12-78); Albumin, Blood 2.2 g/dL (3.4-5.0); Albumin/Globulin Ratio 0.8 (0.8-1.8); Alk Phos 60 U/L (50-136); Anion Gap 5 mmol/L (6-16); Aspartate Aminotrans (AST/SGOT 351 U/L (12-37); Bilirubin, Total 0.2 mg/dL (0.1-1.0); Blood Urea Nitrogen 22 mg/dL (8-24); Bun/Creatinine Ratio 42.6 (12.0-20.0); CO2, Blood 26 mmol/L (21-32); Calcium, Blood 7.6 mg/dL (8.5-10.1); Chloride, Blood 109 mmol/L (98-108); Creatinine, Blood 0.52 mg/dL (0.40-1.00); Globulin, Blood 2.9 g/dL (2.2-4.0); Glomerular Filtration Rate >60 (60-); Glucose, Blood 126 mg/dL (70-99); Potassium, Blood 3.2 mmol/L (3.5-5.5); Sodium, Blood 140 mmol/L (136-145); Total Protein, Blood 5.1 g/dL (6.4-8.2)
[2019-05-19 04:41] LABS: BASOPHILS ABSOLUTE AUTO 0.03 K/mm3 (0.00-0.23); BASOPHILS PERCENT AUTO 0 % (0-2); EOSINOPHILS ABSOLUTE AUTO 0.05 K/mm3 (0.00-0.68); EOSINOPHILS PERCENT AUTO 1 % (0-6); Hematocrit 27.6 % (33.0-51.0); Hemoglobin 9.5 g/dL (11.5-16.0); IMMATURE GRAN ABSOLUTE AUTO 0.03 K/mm3 (0.00-0.10); IMMATURE GRAN PERCENT AUTO 0 % (0-1); LYMPHOCYTES ABSOLUTE AUTO 1.07 K/mm3 (0.84-5.20); LYMPHOCYTES PERCENT AUTO 12 % (21-46); MONOCYTES ABSOLUTE AUTO 0.58 K/mm3 (0.16-1.47); MONOCYTES PERCENT AUTO 6 % (4-13); Mean Corpuscular HGB 34.4 pg (26.0-34.0); Mean Corpuscular HGB Conc 34.4 g/dL (31.5-36.5); Mean Corpuscular Volume 100 fL (80-100); Mean Platelet Volume 9.5 fL (9.1-12.4); NEUTROPHILS ABSOLUTE AUTO 7.43 K/mm3 (1.96-9.15); NEUTROPHILS PERCENT AUTO 81 % (41-73); Platelet Count 140 K/mm3 (150-400); RDW Coefficient Variation 12.7 % (11.7-14.2); RDW Standard Deviation 45.5 fL (35.1-46.3); Red Blood Cell Count 2.76 M/mm3 (3.80-5.20); White Blood Cell Count 9.19 K/mm3 (4.00-11.30)
[2019-05-19 05:40] LABS: Anion Gap 7 mmol/L (6-16); Blood Urea Nitrogen 15 mg/dL (8-24); Bun/Creatinine Ratio 27.5 (12.0-20.0); CO2, Blood 24 mmol/L (21-32); Chloride, Blood 107 mmol/L (98-108); Creatinine, Blood 0.55 mg/dL (0.40-1.00); Glomerular Filtration Rate >60 (60-); Glucose, Blood 96 mg/dL (70-99); Phosphorus, Blood 2.9 mg/dL (2.5-4.9); Potassium, Blood 3.7 mmol/L (3.5-5.5); Sodium, Blood 138 mmol/L (136-145)
[2019-05-20 05:16] LABS: BASOPHILS ABSOLUTE AUTO 0.02 K/mm3 (0.00-0.23); BASOPHILS PERCENT AUTO 0 % (0-2); EOSINOPHILS ABSOLUTE AUTO 0.13 K/mm3 (0.00-0.68); EOSINOPHILS PERCENT AUTO 2 % (0-6); Hematocrit 27.4 % (33.0-51.0); Hemoglobin 9.2 g/dL (11.5-16.0); IMMATURE GRAN ABSOLUTE AUTO 0.02 K/mm3 (0.00-0.10); IMMATURE GRAN PERCENT AUTO 0 % (0-1); LYMPHOCYTES ABSOLUTE AUTO 1.13 K/mm3 (0.84-5.20); LYMPHOCYTES PERCENT AUTO 15 % (21-46); MONOCYTES ABSOLUTE AUTO 0.59 K/mm3 (0.16-1.47); MONOCYTES PERCENT AUTO 8 % (4-13); Mean Corpuscular HGB 33.9 pg (26.0-34.0); Mean Corpuscular HGB Conc 33.6 g/dL (31.5-36.5); Mean Corpuscular Volume 101 fL (80-100); Mean Platelet Volume 9.8 fL (9.1-12.4); NEUTROPHILS ABSOLUTE AUTO 5.59 K/mm3 (1.96-9.15); NEUTROPHILS PERCENT AUTO 75 % (41-73); Platelet Count 125 K/mm3 (150-400); RDW Coefficient Variation 12.4 % (11.7-14.2); RDW Standard Deviation 44.8 fL (35.1-46.3); Red Blood Cell Count 2.71 M/mm3 (3.80-5.20); White Blood Cell Count 7.48 K/mm3 (4.00-11.30)
[2019-05-20 05:20] LABS: Albumin, Blood 2.2 g/dL (3.4-5.0); Anion Gap 5 mmol/L (6-16); Blood Urea Nitrogen 20 mg/dL (8-24); Bun/Creatinine Ratio 38.1 (12.0-20.0); CO2, Blood 27 mmol/L (21-32); Calcium, Blood 7.9 mg/dL (8.5-10.1); Chloride, Blood 108 mmol/L (98-108); Creatinine, Blood 0.53 mg/dL (0.40-1.00); Glomerular Filtration Rate >60 (60-); Glucose, Blood 121 mg/dL (70-99); Phosphorus, Blood 3.1 mg/dL (2.5-4.9); Potassium, Blood 3.5 mmol/L (3.5-5.5); Sodium, Blood 140 mmol/L (136-145)
[2019-05-21 04:51] LABS: BASOPHILS ABSOLUTE AUTO 0.03 K/mm3 (0.00-0.23); BASOPHILS PERCENT AUTO 0 % (0-2); EOSINOPHILS ABSOLUTE AUTO 0.21 K/mm3 (0.00-0.68); EOSINOPHILS PERCENT AUTO 3 % (0-6); Hematocrit 26.4 % (33.0-51.0); Hemoglobin 8.9 g/dL (11.5-16.0); IMMATURE GRAN ABSOLUTE AUTO 0.02 K/mm3 (0.00-0.10); IMMATURE GRAN PERCENT AUTO 0 % (0-1); LYMPHOCYTES ABSOLUTE AUTO 1.32 K/mm3 (0.84-5.20); LYMPHOCYTES PERCENT AUTO 17 % (21-46); MONOCYTES ABSOLUTE AUTO 0.73 K/mm3 (0.16-1.47); MONOCYTES PERCENT AUTO 9 % (4-13); Mean Corpuscular HGB 34.2 pg (26.0-34.0); Mean Corpuscular HGB Conc 33.7 g/dL (31.5-36.5); Mean Corpuscular Volume 102 fL (80-100); Mean Platelet Volume 9.7 fL (9.1-12.4); NEUTROPHILS ABSOLUTE AUTO 5.61 K/mm3 (1.96-9.15); NEUTROPHILS PERCENT AUTO 71 % (41-73); Platelet Count 131 K/mm3 (150-400); RDW Coefficient Variation 12.8 % (11.7-14.2); RDW Standard Deviation 45.8 fL (35.1-46.3); White Blood Cell Count 7.92 K/mm3 (4.00-11.30)
[2019-05-21 05:07] LABS: Anion Gap 4 mmol/L (6-16); Blood Urea Nitrogen 25 mg/dL (8-24); Bun/Creatinine Ratio 48.4 (12.0-20.0); CO2, Blood 26 mmol/L (21-32); Calcium, Blood 8.4 mg/dL (8.5-10.1); Chloride, Blood 108 mmol/L (98-108); Creatinine, Blood 0.52 mg/dL (0.40-1.00); Glomerular Filtration Rate >60 (60-); Glucose, Blood 114 mg/dL (70-99); Potassium, Blood 3.9 mmol/L (3.5-5.5); Sodium, Blood 138 mmol/L (136-145)
[2019-05-22 05:28] LABS: BASOPHILS ABSOLUTE AUTO 0.02 K/mm3 (0.00-0.23); BASOPHILS PERCENT AUTO 0 % (0-2); EOSINOPHILS ABSOLUTE AUTO 0.13 K/mm3 (0.00-0.68); EOSINOPHILS PERCENT AUTO 2 % (0-6); Hematocrit 25.1 % (33.0-51.0); Hemoglobin 8.2 g/dL (11.5-16.0); IMMATURE GRAN ABSOLUTE AUTO 0.02 K/mm3 (0.00-0.10); IMMATURE GRAN PERCENT AUTO 0 % (0-1); LYMPHOCYTES ABSOLUTE AUTO 1.35 K/mm3 (0.84-5.20); LYMPHOCYTES PERCENT AUTO 17 % (21-46); MONOCYTES ABSOLUTE AUTO 0.78 K/mm3 (0.16-1.47); MONOCYTES PERCENT AUTO 10 % (4-13); Mean Corpuscular HGB 33.7 pg (26.0-34.0); Mean Corpuscular HGB Conc 32.7 g/dL (31.5-36.5); Mean Corpuscular Volume 103 fL (80-100); Mean Platelet Volume 9.8 fL (9.1-12.4); NEUTROPHILS ABSOLUTE AUTO 5.49 K/mm3 (1.96-9.15); NEUTROPHILS PERCENT AUTO 70 % (41-73); Platelet Count 145 K/mm3 (150-400); RDW Standard Deviation 47.1 fL (35.1-46.3); Red Blood Cell Count 2.43 M/mm3 (3.80-5.20); White Blood Cell Count 7.79 K/mm3 (4.00-11.30)
[2019-05-22 05:48] LABS: Anion Gap 4 mmol/L (6-16); Blood Urea Nitrogen 28 mg/dL (8-24); Bun/Creatinine Ratio 65.7 (12.0-20.0); CO2, Blood 25 mmol/L (21-32); Calcium, Blood 8.2 mg/dL (8.5-10.1); Chloride, Blood 107 mmol/L (98-108); Creatinine, Blood 0.43 mg/dL (0.40-1.00); Glomerular Filtration Rate >60 (60-); Glucose, Blood 106 mg/dL (70-99); Potassium, Blood 4.2 mmol/L (3.5-5.5); Sodium, Blood 136 mmol/L (136-145)
[2019-06-02] MEDS ORDERED: Culturelle1 CAP PO (08:48)
[2019-06-02] MEDS ORDERED: ACET325 PO (08:48)
[2019-06-02] MEDS ORDERED: BISA10S PR (08:48)
[2019-06-02] MEDS ORDERED: Prinivil10 MG PO (08:49)
[2019-06-02] MEDS ORDERED: LEVE500 PO (08:49)
== END 2019-06-02 13:41 | disposition home health service (06) | DRG 917 ==
LOC: ER 15:04 → ICUE 17:08 → ICUW 17:08 → SURS 17:08 → ICUE 18:57 → SURS 05-18 15:05 → MEDS 05-31 15:31 → ENPENDDIS 06-02 11:42 → MEDS 06-02 13:41
PROVIDERS: Emergency Medicine; Internal Medicine Pulmonary Disease; ADMIT Family Medicine
PROC: 05HM33Z Insertion of Infusion Device into Right Internal Jugular Vein, Percutaneous Approach (ICD-10-PCS; principal; 2019-05-15)
DX: T42.1X4A Poisoning by iminostilbenes, undetermined, initial encounter (principal); G92 Toxic encephalopathy; N39.0 Urinary tract infection, site not specified; E44.0 Moderate protein-calorie malnutrition; Z68.1 Body mass index [BMI] 19.9 or less, adult; Z66 Do not resuscitate; F32.9 Major depressive disorder, single episode, unspecified; I10 Essential (primary) hypertension; G40.909 Epilepsy, unspecified, not intractable, without status epilepticus; E87.6 Hypokalemia; G47.00 Insomnia, unspecified; I95.9 Hypotension, unspecified; F17.210 Nicotine dependence, cigarettes, uncomplicated; I69.320 Aphasia following cerebral infarction; R00.1 Bradycardia, unspecified; I45.5 Other specified heart block; G30.9 Alzheimer's disease, unspecified; F02.80 Dementia in other diseases classified elsewhere, unspecified severity, without behavioral disturbance, psychotic disturbance, mood disturbance, and anxiety
CPT/HCPCS: 36415; 36556; 51702; 70450; 71045; 80048; 80053; 80069; 80156; 81001; 82330; 82550; 82553; 82803; 82947; 83605; 83735; 84100; 84145; 84146; 84443; 84484; 85025; 85610; 87040; 87077; 87086; 87186; 92526; 92610; 93005; 93010; 93306; 94660; 96361-59; 96365-59; 96368; 97110; 97163; 97166; 97530; 97535; 99285-25; A9270; C1751; G0480; J0360; J0461; J0696; J1650; J1953; J2060; J2405; J3480; J7030; J7040; J7060; J7070; J7120

== ENCOUNTER 2019-06-05 10:25 | Emergency (ER) | payer OTHER ==
[~2019-06-05] VITALS: Ht 162.6 cm; Wt 43.1 kg
[~2019-06-05 10:25] MED LIST changes: +ACET325 PO; +BISA10S PR; +Culturelle1 CAP PO; +LEVE500 PO; +Prinivil10 MG PO; +Super B-50 Com1 EACH PO
[2019-06-05] MEDS ORDERED: CARB200ER PO (10:40)
[2019-06-05] MEDS ORDERED: HYDR1TAB94 PO (12:21)
== END 2019-06-05 13:22 | disposition home or self-care (01) ==
LOC: ER 10:25
DX: S42.035A Nondisplaced fracture of lateral end of left clavicle, initial encounter for closed fracture (principal); I10 Essential (primary) hypertension; G40.909 Epilepsy, unspecified, not intractable, without status epilepticus; F03.90 Unspecified dementia, unspecified severity, without behavioral disturbance, psychotic disturbance, mood disturbance, and anxiety; F32.9 Major depressive disorder, single episode, unspecified; Z88.6 Allergy status to analgesic agent; Z91.012 Allergy to eggs; Z88.8 Allergy status to other drugs, medicaments and biological substances; Z86.73 Personal history of transient ischemic attack (TIA), and cerebral infarction without residual deficits; F17.210 Nicotine dependence, cigarettes, uncomplicated; W18.30XA Fall on same level, unspecified, initial encounter
CPT/HCPCS: 70450; 72125; 73030; 99284-25

== ENCOUNTER 2019-08-25 21:48 | Observation (INO) | payer OTHER, MEDICARE ==
[~2019-08-25] VITALS: Ht 157.5 cm; Wt 31.2 kg
[~2019-08-25 21:48] MED LIST changes: +CARB200ER PO; +CULTURELLE HEA1 EACH PO; -Culturelle1 CAP PO; +HYDR1TAB94 PO; -Super B-50 Com1 EACH PO; +Vitamin B Comple1 EA PO
[2019-08-25 22:26] LABS: BASOPHILS ABSOLUTE AUTO 0.04 K/mm3 (0.00-0.23); BASOPHILS PERCENT AUTO 0 % (0-2); EOSINOPHILS ABSOLUTE AUTO 0.02 K/mm3 (0.00-0.68); EOSINOPHILS PERCENT AUTO 0 % (0-6); Hematocrit 32.9 % (33.0-51.0); IMMATURE GRAN ABSOLUTE AUTO 0.09 K/mm3 (0.00-0.10); IMMATURE GRAN PERCENT AUTO 1 % (0-1); LYMPHOCYTES ABSOLUTE AUTO 1.38 K/mm3 (0.84-5.20); LYMPHOCYTES PERCENT AUTO 9 % (21-46); MONOCYTES ABSOLUTE AUTO 0.73 K/mm3 (0.16-1.47); MONOCYTES PERCENT AUTO 5 % (4-13); Mean Corpuscular HGB 32.6 pg (26.0-34.0); Mean Corpuscular HGB Conc 33.4 g/dL (31.5-36.5); Mean Corpuscular Volume 98 fL (80-100); NEUTROPHILS ABSOLUTE AUTO 13.76 K/mm3 (1.96-9.15); NEUTROPHILS PERCENT AUTO 86 % (41-73); RDW Standard Deviation 45.8 fL (35.1-46.3); Red Blood Cell Count 3.37 M/mm3 (3.80-5.20); White Blood Cell Count 16.02 K/mm3 (4.00-11.30)
[2019-08-25 22:31] LABS: Mean Platelet Volume 9.2 fL (9.1-12.4); Platelet Count 206 K/mm3 (150-400)
[2019-08-25 22:45] LABS: Ethanol (Alcohol), Blood, Med <3 mg/dL; Salicylate 3.8 mg/dL (2.8-20.0); Troponin I <0.015 ng/mL (0.000-0.040)
[2019-08-25 22:48] LABS: Alanine Aminotransfer (ALT/SGP 19 U/L (12-78); Albumin, Blood 3.6 g/dL (3.4-5.0); Alk Phos 103 U/L (50-136); Anion Gap 6 mmol/L (6-16); Aspartate Aminotrans (AST/SGOT 23 U/L (12-37); Bilirubin, Total 0.3 mg/dL (0.1-1.0); Blood Urea Nitrogen 21 mg/dL (8-24); Bun/Creatinine Ratio 30.6 (12.0-20.0); CO2, Blood 30 mmol/L (21-32); Calcium, Blood 9.1 mg/dL (8.5-10.1); Chloride, Blood 102 mmol/L (98-108); Creatinine, Blood 0.69 mg/dL (0.40-1.00); Globulin, Blood 3.7 g/dL (2.2-4.0); Glomerular Filtration Rate >60 (60-); Glucose, Blood 200 mg/dL (70-99); Potassium, Blood 3.3 mmol/L (3.5-5.5); Sodium, Blood 138 mmol/L (136-145); Total Protein, Blood 7.3 g/dL (6.4-8.2)
[2019-08-25 23:02] LABS: Carbamazepine 33.2 ug/mL (4.0-12.0)
[2019-08-25 23:03] LABS: Acetaminophen, Random <2.0 ug/mL (10.0-30.0)
--- NOTE | 2019-08-26 02:05 | NUR ---
@0135- PT. VOMITED MODERATE AMOUNT OF REDDISH-BROWN EMESIS. DR. STORY NOTIFIED, INSTRUCTED TO CONT TO MONITOR. PT. IN BED IN HIGH VALENTINE'S POSITION WITH TOWEL PLACED AROUND CHEST AND EMESIS BAG AT PT. SIDE. NO APPARENT DISTRESS NOTED. WILL CONT TO MONITOR.
--- NOTE | 2019-08-26 05:49 | NUR ---
SHIFT SUMMARY- PT. NEW ADMISSION FROM ED. ARRIVED TO FLOOR VIA STRETCHER AND NOT RESPONSIVE DURING THAT TIME, THIS WAS PT'S BASELINE FROM THE ED. ADMISSION VSS, SR ON TELE. PT. HAS DEMENTIA, COGNITIVE DEFICITS, AND ON HOME HOSPICE. PT. HAD A COUPLE EPISODES OF MODERATE AMOUNT OF REDDISH BROWN EMESIS. DR. STORY WAS NOTIFIED, ORDERS GIVEN TO CONT TO MONITOR. PT. RECEIVING IV FLUIDS AND 2 K RIDERS GIVEN PER EMAR. TOLERATED WELL. PT. REPOSITIONED Q2HRS AND PRN FOR COMFORT, ALSO HAVE KEPT PT. IN UPRIGHT POSITION IN BED IN THE CASE MORE EPISODES OF VOMITING OCCUR. WILL CONT TO MONITOR.
--- NOTE | 2019-08-26 06:24 | NUR ---
RECEIVED CALL FROM TELE STATED PT. WITH SHORT PAUSES AND HR 38 SUSTAINED. PT. DNR AND ENROLLED ON HOSPICE OUTPT. INSTRUCTED BY CHARGE NURSE AND NURSING PROJECT DIRECTOR TO CALL PHYSICIAN TO CLARIFY ON WHETHER APPROPRIATE TO CALL A RAPID RESPONSE AT THIS TIME. PT. WAS ADMITTED UNRESPONSIVE AND HAS REMAINED UNRESPONSIVE T/O THE SHIFT. SPOKE WITH DR. STORY, INSTRUCTED THIS NURSE TO CONTINUE TO MONITOR PT. NO ORDER FOR COMFORT CARE GIVEN. DR. STORY STATED AM PHYSICIAN TO DECIDE ON COMFORT CARE ORDERS. SEAT PACK INSPECTOR TECH INFORMED TO CONT TO KEEP THIS NURSE UPDATED ON PT. STATUS. PT. LYING IN BED IN UPRIGHT POSITION. NO APPARENT DISTRESS NOTED. WILL CONT TO MONITOR.
[2019-08-26 07:19] LABS: BASOPHILS ABSOLUTE AUTO 0.01 K/mm3 (0.00-0.23); BASOPHILS PERCENT AUTO 0 % (0-2); EOSINOPHILS PERCENT AUTO 0 % (0-6); Hematocrit 32.3 % (33.0-51.0); Hemoglobin 10.8 g/dL (11.5-16.0); IMMATURE GRAN ABSOLUTE AUTO 0.03 K/mm3 (0.00-0.10); IMMATURE GRAN PERCENT AUTO 0 % (0-1); LYMPHOCYTES ABSOLUTE AUTO 0.81 K/mm3 (0.84-5.20); LYMPHOCYTES PERCENT AUTO 6 % (21-46); MONOCYTES ABSOLUTE AUTO 0.69 K/mm3 (0.16-1.47); MONOCYTES PERCENT AUTO 6 % (4-13); Mean Corpuscular HGB 33.2 pg (26.0-34.0); Mean Corpuscular HGB Conc 33.4 g/dL (31.5-36.5); Mean Corpuscular Volume 99 fL (80-100); Mean Platelet Volume 8.8 fL (9.1-12.4); NEUTROPHILS PERCENT AUTO 88 % (41-73); Platelet Count 204 K/mm3 (150-400); RDW Standard Deviation 47.1 fL (35.1-46.3); Red Blood Cell Count 3.25 M/mm3 (3.80-5.20); White Blood Cell Count 12.64 K/mm3 (4.00-11.30)
[2019-08-26 08:03] LABS: Alanine Aminotransfer (ALT/SGP 19 U/L (12-78); Albumin, Blood 3.3 g/dL (3.4-5.0); Albumin/Globulin Ratio 0.9 (0.8-1.8); Alk Phos 98 U/L (50-136); Anion Gap 6 mmol/L (6-16); Aspartate Aminotrans (AST/SGOT 20 U/L (12-37); Bilirubin, Total 0.3 mg/dL (0.1-1.0); Blood Urea Nitrogen 20 mg/dL (8-24); Bun/Creatinine Ratio 27.1 (12.0-20.0); CO2, Blood 28 mmol/L (21-32); Calcium, Blood 8.8 mg/dL (8.5-10.1); Chloride, Blood 105 mmol/L (98-108); Creatinine, Blood 0.74 mg/dL (0.40-1.00); Globulin, Blood 3.8 g/dL (2.2-4.0); Glomerular Filtration Rate >60 (60-); Glucose, Blood 144 mg/dL (70-99); Potassium, Blood 4.9 mmol/L (3.5-5.5); Sodium, Blood 139 mmol/L (136-145); Total Protein, Blood 7.1 g/dL (6.4-8.2)
[2019-08-26 08:11] LABS: Carbamazepine 28.3 ug/mL (4.0-12.0)
--- NOTE | 2019-08-26 12:40 | NUR ---
INITIAL PAL CARE VISIT: Per [facility], PT is a current hospice pt and DOES NOT WANT BROTHER OR ANY OTHER FAMILY acting as a proxy medical decision maker for her. She does not have a surrogate medical decision maker but does have long standing documented wishes in the form of an AD from the [place]. [facility] provided extensive information regarding pt's wishes and circumstances at home since the pt left our hospital in April. Family declined to pursue guardianship for pt despite the recommendation. No family lives in the state. Pt has very scant supervision for three split hours per day. A neighbor, Lisa, checks on her and helps her for approx 1.5 hours in the am and pm each day. She was hired by the pt and paid for by [facility] per pt's benefits of 20 hours of caregiving per week. Pt is home alone, unsupervised for 21 hours per day. She has refused placement or transfer to [place] hospice unit when Hospice team attempted to improve and increase the level of care she was receiving. Her hospice nurse says her home is an absolutely unsafe place for her to be without significatnly more hours of care or 24/7 care. Leonor will be in to see pt later today. Pt's previous admission for OD of antiseizure medication was not known to be intentional vs accidental. Pt stated she was confused and did not intend to take so much medication. Pt has refused placement of safety measures like electronic mediplanner in the home. seed sorter states there are more indicators that Candy took too much of her antiseizure medication intentionally this time. Her CG had been there in the am and then when she returned at 7pm to check on her found her down and called [facility]. [facility] percussion instructor visited to assess and called 911 after finding the pt unresponsive. Pt was admitted to hospice with the dx of severe protein malnutrition. They feel pt has some level of dementia, along with her long standing mental health dx. Pt has been losing weight and not taken in adequate nutrition for "years". I have relayed all of the above to pt's Dr and bedside nurse. Assessment of pt done. She is sleeping soundly, unresponsive to voice or touch. Per her RN, she exhibits nonverbal painful behaviours with staff repositioning her. Comfort care orders obtained and entered based on her current hospice orders. No PO medications added to comfort care because she is not awake enough to swallow. PO food and fluids will be offered if she wakes enough to accept/swallow safely. I did not observe any nonverbal indicators of anxiety, distress, agitation or pain at the time I visited this am. Discussed premedicating with judicious starting dose of Roxinol for repositioning later in the day. Pt currently has an IV, which can be used for comfort medications for anxiety, nausea/vomiting. However, if current IV is no longer patent, no new IV would be placed per comfort care orders and pt's expressed wishes for hospice plan of care. Pt is well known to me from her lengthy and complicated admission in April under similar admitting dx circumstances. Pal care to follow for support and s/s management. [facility] hospice plans to cont to follow for support also. Pt's current admitting dx is not related to her hospice dx so pt will not be disenrolled at this time.
--- NOTE | 2019-08-26 21:46 | NUR ---
214 COMFORT CARE APPEARS TO BE RESTING WITHOUT APPEARANCE OF PAIN. NO ACUTE CHANGES AT THIS TIME. BED REMAINS IN LOWEST POSITION; ALARM ON. CALL LIGHT IN REACH. TM.
--- NOTE | 2019-08-26 22:51 | NUR ---
3834 COMFORT CARE APPEARED TO BE AWAKE BUT NO PAIN/DISCOMFORT NOTED. ATTENDS CHECKED AND CHANGED. ORAL CARE COMPLETED. REPOSITIONED. NO ACUTE CHANGES AT THIS TIME.
--- NOTE | 2019-08-27 00:45 | NUR ---
0045 COMFORT CARE APPEARS TO BE RESTING. NO SIGNS/SYMPTOMS OF PAIN/DISCOMFORT. WHEN ASK IF PAINFUL; DENIES. NO ACUTE CHANGES AT THIS TIME. BED IN LOWEST POSITION. ALARM ON. CALL LIGHT AND BELONGINGS WITHIN REACH. WCTM.
--- NOTE | 2019-08-27 02:45 | NUR ---
0245 COMFORT CARE APPEARS TO BE RESTING WITHOUT ANY OUTWARD SIGNS OF PAIN/DISCOMFORT. NO ACUTE NEEDS AT THIS TIME. BED IN LOWEST; ALARM ON. CALL LIGHT IN REACH. TM.
--- NOTE | 2019-08-27 04:45 | NUR ---
0445 COMFORT CARE APPEARS TO BE RESTING. STATES PAINFUL; WILL MEDICATE PER EMAR. NO OTHER NEEDS AT THIS TIME. BED IN LOWEST; ALARM ON. CALL LIGHT IN REACH. WCTM.
--- NOTE | 2019-08-27 05:02 | NUR ---
SHIFT SUMMARY ALERT, ABLE TO ANSWER QUESTIONS WITH ONE WORD ANSWERS. C/O PAIN/DISCOMFORT X1; MEDICATED PER EMAR. APPEARED TO REST/SLEEP MUCH OF NIGHT. NO OTHER ACUTE CHANGES NOTED OVERNIGHT. BED REAMINED IN LOWEST POSITION. CALL LIGHT WITHIN REACH. WCTM. REPORT TO ONCOMING RN.
--- NOTE | 2019-08-27 06:45 | NUR ---
0645 COMFORT CARE AWAKE UPON ENTRY. STATES DOING WELL, HOWEVER THROAT DRY. ORAL CARE COMPLETED; MOUTH MOISTURIZURE UTILIZED. STATES MUCH BETTER. NO OTHER ACTUE CHANGES. TM.
--- NOTE | 2019-08-27 10:53 | NUR ---
PT C/O H/A WILL MEDICATE PER ORDERS
--- NOTE | 2019-08-27 16:59 | NUR ---
SHIFT SUMMARY. PT WITH IMPROVING COGNITION THIS SHIFT, STILL WITH CONFUSION AND VISUAL HALLUCINATIONS AT TIMES. FOLLOWS SIMPLE COMMANDS. PT DENIES SOB, N/V. GOOD MEAL INTAKE WITH LUNCH, PT FEEDING HERSELF MORE. PT C/O H/A AND SUBSTERNAL PAIN THIS AM, PAIN MANAGED WITH PO APAP AND ROXONOL. PENDING PSYCH CONSULT, PT PLACED ON LOW RISK SUICIDE PRECAUTIONS, SHE HAS REPORTED TO MD AND THIS RN THAT SHE "WANTS TO ." WHEN ASKED WHY SHE WANTS TO PT REPORTED, "I'M JUST TIRED OF TRUMP." PT WAS NOT ABLE TO ELABORATE ON THIS. PT APPEARS COMFORTABLE AT THIS TIME WITH NO S/SX OF DISCOMFORT OR DISTRESS, PT DENIES COMPLAINTS.
--- NOTE | 2019-08-27 19:10 | NUR ---
191 COMFORT CARE AWAKE AND ALERT UPON ENTRY. NO ACUTE NEEDS AT THIS TIME. BED IN LOWEST; ALARM ON. CALL LIGHT WITHIN REACH. TM.
--- NOTE | 2019-08-27 21:10 | NUR ---
2109 COMFORT CARE AWAKE, ALERT, WATCHING TV. NO ACUTE NEEDS AT THIS TIME. BED IN LOWEST; ALARM ON. CALL LIGHT IN REACH. TM.
--- NOTE | 2019-08-27 22:30 | NUR ---
PHSYICIAN CORRESPONDENCE CONTINUED ATTEMPTS TO GET OUT OF BED. INCREASED AGITATION. NO IV (PATIENT PULLED). NEW ORDER FOR X1 ZYPREXA IM.
--- NOTE | 2019-08-27 23:30 | NUR ---
7091 COMFORT CARE CONTINUES TO TALK NONSENSE (CONFUSED), NO LONGER ATTEMPTING TO EXIT BED. TM.
--- NOTE | 2019-08-28 01:30 | NUR ---
0130 COMFORT CARE NO ACUTE CHANGES. CONTINUES TO TALK (NONSENSE). NO ATTEMPTS TO EXIT AT THIS TIME. BED REMAINS IN LOWEST POSITION; ALARM ON. CAMERA ON. CALL LIGHT IN REACH. TM.
--- NOTE | 2019-08-28 03:30 | NUR ---
0330 COMFORT CARE ALERT, AWAKE, NO ACUTE CHANGES. STATES NO PAIN AT THIS TIME. DID DRINK AN ENTIRE ENSURE. WCTM. BED IN LOWEST; ALARM ON.
--- NOTE | 2019-08-28 05:30 | NUR ---
0530 COMFORT CARE APPEARS TO BE RESTING AT THIS TIME. NO ACUTE CHANGES AT THIS TIME. BED REMAINS IN LOWEST POSITION; ALARM ON. CALL LIGHT WITHIN REACH. TM.
--- NOTE | 2019-08-28 05:53 | NUR ---
SHIFT SUMMARY ALERT, ABLE TO MAKE NEEDS KNOWN. IRRITABLE/AGITATED AT BEGINNING OF SHIFT. EXITING BED AND STATED GOING TO LEAVE (NEW ORDERS RECEIVED FROM ON-CALL PHSYSICAN, SEE PREV NOTES). PULLED IV WITHOUT INTENTION. APPEARED TO REST OFF AND ON T/O SHIFT. NO OTHER ACUTE CHANGES OVERNIGHT. BED REMAINS IN LOWEST POSITION; ALARM ON. CALL LIGHT AND BELONGINGS WITHIN REACH. WCTM. REPORT TO ONCOMING RN.
--- NOTE | 2019-08-28 10:44 | NUR ---
PT ASSISTED TO BSC BY FORMULA CHECKER, FORMULA CHECKER ALERTED THIS RN THAT PT SAT ON BSC AND THEN LEANED FORWARD AND HAD SOME TREMOR ACTIVITY BREIFLY. FORMULA CHECKER ASSISTED PT TO SITTING POSITIOIN. PT EXIHIBITED POSTICAL SYMPTOMS, STARING AT A GAZE AND NOT RESPONDING TO QUESTIONS, NOT FOLLOWING DIRECTIONS. POSTICAL STATE OCCURED FOR 2 MINUTES. PT LIFTED BACK TO BED BY TWO STAFF. PT BEGAN TO CONVERSATE AND FOLLOW DIRECTIONS, SHE REPORTED THAT SHE HAD A SMALL SEIZURE. OTHER NEURO ASSESSMENT WNL POST POSTICAL STATE. DR. BLAIR NOTIFIED AND PLACED ORDERS FOR HOME ANTI-SEIXZURE MEDICATION.
--- NOTE | 2019-08-28 12:12 | NUR ---
Comfort Care: Pt is alert. She reports mild pain in hands and headache. She would like some medication support for treating her pain. No other concerns. She is not anxious, not painful in any other areas than listed. Updated nursing on pain sites and intensity.
--- NOTE | 2019-08-28 18:15 | NUR ---
SHIFT SUMMARY. A&OX1-2, INTERMITTENT PERIODS OF INCREASED CONFUSION, SOME VISUAL HALLUCINATIONS AND DELUSIONS. PT IS EASILY REDIRECTABLE, ALTHOUGH REMAINS CONFUSED. PT EATING AND DRINKING. PT REPORTED H/A THIS SHIFT, PAIN MANAGED WELL WITH APAP. PT DENIES N/V, SOB. NO S/SX OF DISTRESS OR DISCOMFORT. NO FURTHER SEIZURE ACTIVITY, PT RESTARTED ON HOME DOSE OF ANTI SIEZURE MEDICATION. PT PENDING [facility] EVAL. PT'S BROTHER, RYAN BLANCO, CALLED THIS EVENING AND HE REPORTED THAT THE PT HAD TOLD HIM THAT PT WOULD ALLOW STAFF TO DISCUSS MEDICAL INFORMATION WITH PT. PT ASKED IF SHE WOULD NOW LIKE MEDICAL STAFF TO RELEASE VERBAL INFORMTION TO HER BROTHER. PT RESPONDED THAT SHE WOULD LIKE HER BROTHER TO BE INFORMED ON SITUATION AND PLAN OF CARE. RELEASE OF INFORMATION FORM SIGNED BY PT. RYAN, PT'S BROTHER UPDATED ON PLAN OF CARE. NO OTHER CHANGES OR CONCERNS.
--- NOTE | 2019-08-28 19:35 | NUR ---
1934 COMFORT CARE ALERT, AWAKE, COOPERATIVE WITH CARE. ANSWERSING QUESTIONS TO THE BEST OF HER ABILITY. HAD A BM, ATTENDS CHANGES. REPOSITIONED. DENIES PAIN/DISCOMFORT. NO OTHER NEEDS AT THIS TIME. BED IN LOWEST; ALARM ON. WCTM.
--- NOTE | 2019-08-28 21:00 | NUR ---
2100 COMFORT CARE ALERT, AWAKE, COOPERATIVE WITH CARE. EXPLAINED SHE HAD SOME MEDICATION TO TAKE; SWALLOWED JUST FINE. DENIED ANY PAIN/DISCOMFORT AT THIS TIME. NO NEEDS INDICATED. BED IN LOWEST; ALARM ON. CALL LIGHT IN REACH. WCTM.
--- NOTE | 2019-08-28 23:00 | NUR ---
2300 COMFORT CARE APPEARS TO BE RESTING COMFORTABLY. NO OUTWARD SIGNS OR PAIN/DISCOMFORT. NO ACUTE NEEDS AT THIS TIME. BED IN LOWEST POSITION; ALARM ON. CALL LIGHT IN REACH. WCTM.
--- NOTE | 2019-08-29 01:00 | NUR ---
0100 COMFORT CARE APPEARS TO BE RESTLESS. DENIES ANY PAIN/DISCOMFORT. ATTENDS CHECK; ROUTINE CHANGED COMPLETED. OFFERED PO FLUIDS; REFUSED. REPOSITIONED. NO ACUTE NEEDS AT THIS TIME. BED IN LOWEST; ALARM ON. CALL LIGHT IN REACH. WCTM.
--- NOTE | 2019-08-29 03:00 | NUR ---
0300 COMFORT CARE APPEARS TO BE RESTING AT THIS TIME. NO OUTWARD SIGNS ON PAIN/DISCOMFORT. NO ACUTE NEEDS AT THIS TIME. BED IN LOWEST POSITION; ALARM ON. CALL LIGHT AND BELONGINGS WITHIN REACH. TM.
--- NOTE | 2019-08-29 04:12 | NUR ---
SHIFT SUMMARY ALERT, ABLE TO MAKE NEEDS KNOWN. USES CONFABULATION WHEN ASKED A QUESTIONS SHE IS UNSURE ABOUT. APPEARED TO REST MUCH OF SHIFT. NO C/O OR SIGNS OF PAIN/DISCOMFORT. INCONTINENT VOIDS NOTED. DISPLAYS GOOD BED MOVEMENT. NO OTHER ACUTE CHANGES NOTED OVERNIGHT. BED REAMINS IN LOWEST POSITION; ALARM ON. CALL LIGHT AND BELONGINGS WITHIN REACH. WCTM. REPORT TO ONCOMING RN.
--- NOTE | 2019-08-29 05:05 | NUR ---
0505 COMFORT CARE APPEARS TO BE RESTING WITHOUT SIGNS OF PAIN/DISCOMFORT. NO ACUTE NEEDS AT THIS TIME. BED IN LOWEST POSITION; ALARM ON. CALL LIGHT WITHIN REACH. WCTM.
--- NOTE | 2019-08-29 15:26 | NUR ---
[facility] COMFORT CARE VISIT - Pt awake in bed. Knees drawn up and moving side to side. Pt tells me, "It's not a very good day". She denies pain. Bedrail raised before leaving the room. Case conferenced with pt's RN, who states Dr Cortez has seen pt today and PN pending. Case conferenced with JANET Sales earlier this am. Pt may have a complicated d/c and placement challenges. She is clearly expressing her intent and desire to kill herself. She does not have supervision at home outside of approx 3 hrs per day divided between am/pm. All family live out of state. They have not supported pt's advanced directive wishes on her previous admission and pt has asked that health care providers do not contact family. Family declined to pursue or assist with guardianship during pt's last admission and advocated for her to be sent home alone again despite psychiatrists assessment and recommendations.
--- NOTE | 2019-08-29 17:40 | NUR ---
Initial; spiritual care note: Candy appears weak and was slow to respond. She appeared to have difficulty focusing. She told me she has a dtr, but has been estranged for many years. "I don't even know where she is anymore." She joined the [employer] at a young age and was to a man "who faked his own ." Candy thought I was someone she knew and liked. Therefore, she engaged well although weakly and with confusion. She is non -gnosticist, but appeared to benefit from presence of love and complanionship. Sat and stroked her forehead. She appeared to enjoy this. I will remain available.
--- NOTE | 2019-08-29 18:22 | NUR ---
SHIFT SUMMARY. A&OX1, PLEASANT AND COOPERATIVE WITH CARE, PT MORE LETHARGIC THIS AM THAN OVER THE WEEKEND, ARROUSES EASILY WITH VERBAL STIMULATION. PT REPORTED LOWER ABD PAIN THIS AM, PAIN MANAGED WELL WITH TRAMODOL. PT HAD EXTRA LG BM THIS AFTERNOON. DR. ABRAMS CONSULTED TODAY AND RECOMMENDED GUARDIANSHIP. NO OTHER CHANGES OR CONCERNS.
--- NOTE | 2019-08-29 21:48 | NUR ---
CALL TO HOSPITALIST: PT REPEATEDLY ATTEMPTING TO GET OOB TO "GO TO THE KITCHEN", TO "LOOK FOR THE MAN IN THE CATALAN", ETC. PT IS CONFUSED AND FORGETFUL. UNABLE TO ANSWER SIMPLE QUESTION OF WHAT WOULD SHE LIKE TO DRINK BEFORE SHE FORGETS TOPIC AND BEGINS TALKING ABOUT SOMETHING ELSE. DISORIENTED TO LOCATION OR REASON FOR BEING IN THE HOSPITAL. CALL TO HOSPITALIST SYDNIE LINTON FOR [facility].
--- NOTE | 2019-08-30 04:17 | NUR ---
SHIFT SUMMARY: COMFORT CARE STATUS. PT DENIES PAIN CONSISTENTLY TONIGHT. VERY MOBILE IN BED. INCONT OF B/B. ATIVAN ADMINISTERED X1 FOR INCREASED AGITATION- EFFECTIVE. PT APPEARS TO HAVE SLEPT WELL TONIGHT. AAO TO SELF ONLY. CONFUSED, FORGETFUL, AND UNABLE TO STAY FOCUSED ON ANY ONE TOPIC. DOES NOT REORIENT WELL. NO ACUTE CHANGES OVERNIGHT. PT APPEARS TO BE RESTING COMFORTABLY AT THIS TIME. WILL CONT TO MONITOR.
--- NOTE | 2019-08-30 10:01 | NUR ---
PAL CARE COMFORT CARE VISIT MADE AT 0835 THIS AM. Pt asleep in dk room. She is fidgeting in her sleep but did not wake to voice. EMR reviewed and notes re: increased confusion and agitation during the night. New orders for ativan noted. Psych consult reviewed. Recommend [facility], [facility], [facility] or other 24 hour care placement option to continue supportive EOL/hospice care where pt will be safer than home with 3 hours a day supervision and intermittent visits from Hospice staff. Psychiatric eval is unchanged from April when guardianship was recommended. Pt has lost an additional 16+% of her body weight since her last April/May. She has late stage dementia and severe malnutrition. She meets medicare criteria for hospice care. Her KPS score is 20%. Fast Score is 7.
--- NOTE | 2019-08-30 11:02 | NUR ---
AM ASSESSMENT- PT AWAKE LYING IN BED. PT ORIENTED TO PERSON AND PLACE. PT REPORTS 10/10 PAIN "ALL OVER" PRN TRAMADOL GIVEN. LS CLEAR, ON RA. PT DENIES ANY OTHER COMPLAINTS AT THIS TIME. PT ON COMFORT CARE, DNR WRISTBAND ON RIGHT WRIST. BED ALARM ON AT THIS TIME.
--- NOTE | 2019-08-30 13:16 | NUR ---
PT'S BROTHER CALLED FOR AN UPDATE, HE REPORTS HE LIVES IN [place] BUT IS THE PATIENTS ONLY LIVING RELATIVE. HE WAS ASKING ABOUT GUARDIANSHIP IN WHICH I SPOKE WITH DOMI FROM CASE MANAGEMENT WHO WILL BE CALLING BROTHER BACK FOR AN UPDATE OF GUARDIANSHIP AND PLACEMENT. BROTHER REPORTS ALTERNATIVE NUMBER OF [phone] WELL [phone].
[2019-08-30] MEDS ORDERED: VITAMIN D325 MC3 PO (15:07)
[2019-08-30] MEDS ORDERED: EC-Naprosyn500 MG PO (15:08)
[2019-08-30] MEDS ORDERED: MILK OF MA400 MG/51 PO (15:10)
[2019-08-30] MEDS ORDERED: Ativan1 MG PO (15:14)
[2019-08-30] MEDS ORDERED: HYOSCYAMINE0.125 MG SL (15:14)
[2019-08-30] MEDS ORDERED: MORP20L PO (15:15)
[2019-08-30] MEDS ORDERED: DOCUSATE SODIU1 EAC1 PO (15:16)
--- NOTE | 2019-08-30 16:11 | NUR ---
ALLEN FROM [facility] CALLED FOR AN UPDATE ON PSYCH EVAL THAT WAS DONE 08/28. SHE WAS ALSO ASKING FOR DISCHARGE PLAN, MESSAGE LEFT FOR DOMI CASE MANAGEMENT TO CALL BACK TOMORROW. REBEL CALL BACK NUMBER [phone].
--- NOTE | 2019-08-30 18:06 | NUR ---
SHIFT SUMMARY- PT A/O TO SELF ONLY. PT MEDICATED X2 FOR GENERALIZED PAIN WELL HEADACHE. PT AGITATED AT TIMES, ATTEMPTED TO GIVE ATIVAN AND PT SPIT OUT, PT DID EVENTUALLY TAKE IT WITH CHOCOLATE PUDDING. PT ADAMENT SHE WAS GOING OUTSIDE AND WANTING TO LEAVE. PT ASKS FREQUENTLY ABOUT HER SPOUSE WHO HAS PASSED, BUT AT TIMES BELIEVES HE IS STILL ALIVE AND HAS LEFT HER. LS CLEAR, ON RA. PT ADVANCED TO SOFT DIET THIS EVENING. PT COMFORT CARE. BROTHER CALLED FOR UPDATE WELL AMEDISYS ON DISCHARGE PLAN. NO OTHER ACUTE CHANGES THIS SHIFT.
--- NOTE | 2019-08-31 05:50 | NUR ---
SHIFT SUMMARY NO ACUTE CHANGES TO REPORT THIS SHIFT. PT HAS DENIED PAIN WHEN ASKED. A/OX1 AND PLESANTLY CONFUSED. PT HAS OVERALL RESTED WELL THIS SHIFT, BUT ON OCCASION DOES TRY TO CLIMB OUT OF BED. PT ABLE TO INDEPENDENTLY MOVE AROUND IN BED AND REPOSITION HERSELF. SHE TOOK HER HS MEDS WITHOUT DIFFICULTY. COMFORT ASSESSMED T/O SHIFT. BED IN LOWEST POSITION, CALL LIGHT WITHIN REACH. WILL CONTINUE TO MONITOR AND REPORT TO ONCOMING RN.
--- NOTE | 2019-08-31 10:23 | NUR ---
AM ASSESSMENT- PT AWAKE, ORIENTED TO SELF ONLY. PT ASKING ABOUT SPOUSE. LS CLEAR, ON RA. RESP E/U. PT REPORTS NECK PAIN, PRN TRAMADOL GIVEN. PT PLEASANT AND COOPERATIVE THIS AM. PT SITTING UP IN BED EATING BREAKFAST AT THIS TIME. WILL CONT TO MONITOR.
--- NOTE | 2019-08-31 16:55 | NUR ---
SHIFT SUMMARY- PT ON COMFORT CARE. PT MEDICATED THIS AM WITH TRAMADOL FOR NECK PAIN, PT HAS DENIED ANY PAIN SINCE. PT A/O TO SELF ONLY. PT IS PLEASANTLY CONFUSED BUT AT TIMES DIFFICULT TO REDIRECT AND PT CAN BECOME ANXIOUS. PT WANTING TO LEAVE MULTIPLE TIMES AND ATTEMPTS TO PUT HER LEG OVER THE RAILING IN THE BED. PRN ATIVAN GIVEN X1. LS CLEAR, ON RA, RESP E/U. PT EATING A SOFT DIET. INCONT OF URINE. BUTTOCKS RED BUT BLANCHABLE. PT CONT TO AWAIT GUARDIANSHIP AND PLACEMENT. [facility] AND BROTHER CALLED FOR AN UPDATE AGAIN TODAY FROM CASE MANAGEMENT REGARDING DISCHARGE PLAN, ILDA WITH CASE MANAGEMENT NOTIFIED. NO OTHER ACUTE CHANGES THIS SHIFT.
--- NOTE | 2019-08-31 19:33 | NUR ---
BED EXIT ALARM X 2. LEGS BACK INTO BED.
--- NOTE | 2019-09-01 01:32 | NUR ---
PATIENT SLEEPING AT THIS TIME. CALL LIGHT IN REACH.
--- NOTE | 2019-09-01 03:39 | NUR ---
SHIFT SUMMARY PATIENT ON COMFORT CARE. AXO X1 TO SELF. CONFUSED AND HAD MULTIPLE BED EXIT ATTEMPTS TRYING TO LEAVE AND ACTIVATING BED ALARM. PUT LEGS OVER BED RAILS T/O FIRST PART OF SHIFT. ON CAMERA. PO ATIVAN GIVEN FOR ANXIETY. REPORTED NECK PAIN AND PO OXYCODONE GIVEN PER EMAR. TAKES MEDICATION CRUSHED IN CHOCALATE PUDDING. ONE ASSIST TO BSC. NOT EASILY REDIRECTABLE. CALL LIGHT IN REACH. BED IN LOWEST POSITION AND ALARM ACTIVATED. WILL CONTINUE TO MONITOR UNTIL DAY SHIFT NURSE ASSUMES CARE.
--- NOTE | 2019-09-01 09:33 | NUR ---
Pt resting in bed with her eyes closed. Pt appears comfortable with no S/S of distress at this time. Spoke with Bedside JUAN LUIS Tom and discussed case. Pt had a couple of episodes of anxiety last night and Ativan was given. Ativan managed symptoms with Pt remaining comfortable since. No other concerns reported at this time. Palliative Care will remain available.
--- NOTE | 2019-09-01 17:25 | NUR ---
PT REQUESTING TO SPEAK WITH PT ADVOCATE, CALL PLACED TO JOSH CHATMANNEHEMIAS, REACHED VOICE MAIL JOSH HAS LEFT THE BULDING FOR THE DAY AT THIS TIME. MESSAGE LEFT. PT INFORMED OF ABOVE, PT SAYS SHE IS TIRED OF THE "BS", SAYING THAT JOSH TOLD HER THAT SHE WAS GOING HOME TODAY AND SOMEONE NEEDS TO TAKE CARE OF HER ANIMALS SO THEY DON'T . PT WAITING FOR PLACEMENT. WILL CONTINUE TO MONITOR
--- NOTE | 2019-09-01 18:19 | NUR ---
NO ACUTE CHANGES NOTED THIS SHIFT, REMAINS ON COMFORT CARE, WILL CONTINUE TO MONITOR AND REPORT TO ONCOMING RN
--- NOTE | 2019-09-01 19:24 | NUR ---
PATIENT HAVING AUDITORY HALLUCINATIONS. COMFORT CARE AND IN BED. CALL LIGHT IN REACH.
--- NOTE | 2019-09-02 03:48 | NUR ---
SHIFT SUMMARY PATIENT ON COMFORT CARE. MULTIPLE BED EXIT ATTEMPTS FIRST PART OF SHIFT. ON CAMERA. AXO TO SELF. PO ATIVAN GIVEN FOR ANXIETY AND OXYCODONE FOR NECK PAIN. TAKES MEDICATION CRUSHED IN CHOCOLATE PUDDING. ONE ASSIST TO BSC. NOT ABLE TO REORIENT AT THIS TIME. CALL LIGHT IN REACH. BED IN LOWEST POSITION AND ALARM ACTIVATED. WILL CONTINUE TO MONITOR UNTIL DAY SHIFT NURSE ASSUMES CARE.
--- NOTE | 2019-09-02 04:16 | NUR ---
PATIENT TRYING TO EXIT BED PER CAMERA TECH X TWO. PATIENT NOT ABLE TO REORIENT AT THIS TIME. PATIENT BACK IN BED WITH ALARM ON. WILL CONTINUE TO MONITOR.
--- NOTE | 2019-09-02 09:21 | NUR ---
COMFORT CARE ASSESSMENT: PT IN NO APPARENT DISTRESS / NO C/O PAIN. NO DYSPNEA/SOB/SECRETIONS. NO FAMILY PRESENT. WCTM.
--- NOTE | 2019-09-02 10:53 | NUR ---
CC ASSESSMENT: PT IN NO APPARENT DISTRESS. NO DYSPNEA/SOB/SECRETIONS. NO FAMILY PRESENT. WCTM.
--- NOTE | 2019-09-02 12:03 | NUR ---
CC ASSESSMENT: NO C/O PAIN / PT IN NO APPARENT DISTRESS. NO DYSPNEA/SOB/SECRETIONS. NO FAMILY PRESENT. WCTM.
--- NOTE | 2019-09-02 14:11 | NUR ---
CC ASSESSMENT: NO C/O PAIN. NO DYSPNEA/SOB/SECRETIONS. NO FAMILY PRESENT. BROTHER (RYAN) CALLED AND UPDATED ON PATIENT STATUS. WCTM.
--- NOTE | 2019-09-02 17:12 | NUR ---
Comfort Care: At time of visit, pt is resting quietly in bed with eyes closed. Orders, meds, and chart reviewed. No concerns at this time from staff.
--- NOTE | 2019-09-02 19:25 | NUR ---
CC ASSESSMENT: NO C/O PAIN. NO DYSPNEA/SOB/SECRETIONS. NO FAMILY PRESENT. WCTM.
--- NOTE | 2019-09-02 19:26 | NUR ---
CC ASSESSMENT: PT IN NO APPARENT DISTRESS / NO C/O PAIN. NO DYSPNEA/SOB/SECRETIONS. NO FAMILY PRESENT. WCTM.
--- NOTE | 2019-09-02 19:27 | NUR ---
SHIFT SUMMARY: NO ACUTE CHANGES TO REPORT THIS SHIFT. PT A&O X1; COOPERATIVE WITH CARE. NO C/O PAIN THIS SHIFT. COMFORT CARE MEASURES CONTINUING. REPORT GIVEN TO ONCOMING RN.
--- NOTE | 2019-09-02 19:30 | NUR ---
Patient currently yeling out that she needs her clothes brought to her so that she can go home. It was explained that the Doctor does not feel that she is strong enough to go home alone at this time. Patient stated "Get that F.. Doctor in here NOW!" Told patient I would check and see what I can do.
--- NOTE | 2019-09-03 17:14 | NUR ---
Shift Summary A/O, pleasant and cooperative with care. Medicated x 1 for agitation, x 1 for pain. Patient has been up in chair and back to bed frequently t/o day. Appetite is moderately good, requires set up. Does not use call light appropriately. Uneventful day.
--- NOTE | 2019-09-03 23:52 | NUR ---
Patient continues to hallucinate about brother Percy and perhaps old friends through the evening. It appears to keep her content. When she is not having these "interactions", she appears very sad and difficult to console.
--- NOTE | 2019-09-04 16:31 | NUR ---
Patient stating suicidal ideations "I want to go home so I can kill myself." Continues to climb oob and is adamant about going home. This RN explained possibility of falling and causing broken bones. Patient states "I want to fall so I can !". Patient threw water cup across the room. Will continue to redirect patient, medicated for agitation and pain.
--- NOTE | 2019-09-04 18:05 | NUR ---
Shift Summary A/O to self. Patient was agitated today wanting to go home. Having visual hallucinations and yelling in the room at family members who were not there. Medicated x 1 for pain, x 1 for agitation with good results. Patient is now calm and eating dinner in the chair. Remote monitoring remains on and verified by this RN. Brother (Waqar) called and asked for updates, he will call back tomorrow to discuss process of obtaining guardianship. Will continue to monitor.
--- NOTE | 2019-09-05 09:38 | NUR ---
Suicide Safety Plan NOT completed. chart reviewed and report received from RN. Guardianship letter written by Dr. Watson due to patient inability to make decisions for herself. Chart review reflects brother may be seeking guardianship. Appears patient will not be discharged to home or independent living due to her cognitve impairment. Cognitive ability is needed to create a safety action plan for how to contact help if suicida, and patient is unable to engage in this kkind of decisison making. Jesusita Woody M.Ed., [facility]
--- NOTE | 2019-09-05 11:31 | NUR ---
LATE ENTRY. PATIENT TAKEN OUT OF RESTRAINTS AT 1131.
--- NOTE | 2019-09-05 15:16 | NUR ---
PHYLLIS TAKEN OFF EARLIER. INCREASE ANXIETY. ABLE TO REDIRECT AT TIMES. ASKS SAME QUESTIONS OVER AND OVER, ALMOST IN THE SAME SENTENCE. BED ALARM ON.
--- NOTE | 2019-09-05 16:31 | NUR ---
ALERT TO SELF. ANXIOUS . TRIES TO LEAVE OFTEN. POSY VEST IN PLACE. CACHETIC LOOKING. VERY POOR APPETITE. COOPERATIVE W/MORNING MEDS IN [place]. PUDDING. PALLIATIVE CARE IN TO SEE. UNLABORED RESPIRATIONS. WCTM
--- NOTE | 2019-09-05 19:26 | NUR ---
CALLED SCU MONITOR VERIFIED VIDEO SURVEILLANCE IS IN PLACE
--- NOTE | 2019-09-06 04:21 | NUR ---
SHIFT SUMMARY ADMITTED FOR ACCIDENTAL CARBAMAZEPINE OD. DNR CODE. ADMITTED BACK IN MAY 2019 FOR SAME. COMFORT CARE. PHYLLIS & WRIST RESTRAINT ORDERS GOOD UNTIL 09/06/19 @ 1555 HRS. PT IS CONFUSED, ATTEMPTS TO EXIT BED, HIGH FALL RISK, HALLUCINATES. HER BROTHER RYAN IS SEEKING GUARDIANSHIP, THE PLAN MAY BE TO RETURN HOME ON HOSPICE. MEDS CRUSHED IN CHOCOLATE PUDDING. MEPILEX IS ON COCCYX. LOW RISK SI - DUE TO STATEMENTS MADE TO CERTAIN STAFF ON PREVIOUS SHIFTS. SHE IS INCONTINENT.
--- NOTE | 2019-09-06 19:48 | NUR ---
SHIFT SUMMARY PT RESTING QUIETLY THIS AM AT START OF SHIFT. PO MEDS GIVEN IN APPLESAUCE, PT TOLERATED WELL. PT INCONTINENT OF BLADDER. ON COMFORT CARE WAITING FOR BROTHER TO SEEK GUARDIANSHIP TO DECIDE IF PT TO RETURN TO HOSPICE. PT IS CONFUSED AND DISORIENTED. ATTEMPTED TO GET OOB AND FIND W/C WHEN AWAKE. RESTRAINTS OFF PER DR BLAIR FOR A WHILE, BUT UNABLE TO KEEP PT SAFE. PT CLIMBING OOB CONSTANTLY AND PT TOO LIGHT TO SET BED ALARM. MEDS GIVEN PER EMAR. DR BLAIR UPDATED ON PT; PHYLLIS VEST REPLACED. PT RESTING QUIETLY AT THIS TIME. REPORT GIVEN TO ONCOMING RN.
--- NOTE | 2019-09-06 20:37 | NUR ---
VERIFIED VIDEO MONITORING CALLED SCU MONITOR TO VERIFY VIDEO MONITORING
--- NOTE | 2019-09-07 05:09 | NUR ---
SHIFT SUMMARY ADMITTED FOR ACCIDENTAL CARBAMAZEPINE OD (PREVIOUS ADMIT FOR SAME IN APRIL). DNR CODE. PLAN IS FOR BROTHER TO GET GUARDIANSHIP. SHE IS A [facility] PATIENT. SHE WAS ON HOSPICE AT HOME PREVIOUS TO ADMIT. SHE IS FRAIL AND CONFUSED, HAS HALLUCINATIONS. SOFT BITE SIZE DIET, CRUSH MEDS IN APPLESAUCE. PHYLLIS RESTRAINT FOR IMPULSIVENESS. SHE FREQUENTLY ATTEMPTS TO EXIT BED. UNABLE TO REDIRECT.
--- NOTE | 2019-09-07 18:44 | NUR ---
Clinical Visit: Pt is alert, not oriented. She reports pain, however, she is unable to tell me where it is. She wants some scissors. I decline to bring them to her. She wants a pen. I decline also to bring this to her. Nurse reports that she has been sleeping all day, then woke up to have dinner. Nurse reports that she was eating so quickly that she was choking. The aide and the nurse had to hold her hands to slow down. No other concerns at this time. Pt was taken off of comfort measures. Palliative care will continue to follow.
--- NOTE | 2019-09-07 19:27 | NUR ---
PT GOT VERY AGITATED FOR DINNER. PRACTICALLY WOLFING FOOD TRIED TO ASST, HAD TO PULL BACK FEEDING. BECAME QUITE ANGRYK ABOUT BEING FED AND SMALL BITES. ASKED FOR BROTHER. IS COMFORT CARE. NO NEW CONCERNS AT THIS TIME. BED IN LOW POSITOIN,C ALL LITE IN REACH. BED ALARM ON FOR SAFETY
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
--- NOTE | 2019-09-08 08:16 | NUR ---
PT IS AWAKE APPEARS TO BE COMFORTABLE AT THIS TIME, APPEARS TO BE BREATHING EASILY AT REST, COLLAR TURNER IN TO ASSIST THE PT WITH BREAKFAST
--- NOTE | 2019-09-08 10:15 | NUR ---
AGITATION THE PT IS VERY RESTLESS TRYING TO CLIMB OUT OF THE BED, PT IS A SEVERE FALL RISK, PT BECOMES AGITATED WHEN TRYING REDIRECT, ATIVAN PO GIVEN 1MG
--- NOTE | 2019-09-08 18:22 | NUR ---
PT AGITATED, NON DIRECTABLE, CLIMBING OVER THE SIDE OF THE BED WHILE IN RESTRAINT, GAVE ATIVAN ORDERED FOR AGITATION, PT RELAXED AND FELL ASLEEP WITHIN 1/2 HR
--- NOTE | 2019-09-08 18:24 | NUR ---
PT APPEARS TO BE AT REST
--- NOTE | 2019-09-08 18:25 | NUR ---
PT APPEARS TO BE COMFORTABLE AT THIS TIME AWAKENS EASILY
--- NOTE | 2019-09-08 18:26 | NUR ---
PT AGAIN AT THIS TIME IS AGITATED YELLING OUT AND CLIMBING OVER THE BED, ATIVAN WAS GIVEN
--- NOTE | 2019-09-08 18:27 | NUR ---
PT IS AWAKE APPEARS TO BE CALM AND COMFORTABLE AT THIS TIME,COMPARED TO EARLIER WHEN SHE WAS DISROBING, YELLING OUT AND AGITATED,PT APPEARS TO BE BREATHING EASILY AT REST, NO OTHER CHANGES NOTICED THIS SHIFT.
--- NOTE | 2019-09-09 05:10 | NUR ---
SHIFT SUMMARY PT IS A 74 Y/O FEMALE, ADMITTED FOR AN ACCIDENTAL CARBAMEZEPIME OVERDOSE. SHE IS CURRENTLY COMFORT CARE. PT IS A&O X SELF ONLY, WITH A HX OF ADVANCED DEMENTIA. PT HAS EPISODES OF AGITATION AND PARANOIA, AND VISUAL HALLUCINATIONS. SHE WAS MEDICATED ONCE AT BEDTIME WITH PRN PO ATIVAN FOR AGITATION. NO OTHER ACUTE CHANGES IN PT CONDITION NOTED DURING THE NIGHT. WILL CONTINUE TO MONITOR AND TREAT PER EMAR UNTIL HAND OFF TO DAY SHIFT RN.
--- NOTE | 2019-09-09 10:59 | NUR ---
PT IS RESTING COMFORTABLY AT THIS TIME, APPEARS TO BE BREATHING EASILY AT REST
--- NOTE | 2019-09-09 17:27 | NUR ---
PT IS ALERT, ORIENTED TO SELF, CONFUSED/DILUSIONAL AT TIMES THE PT IS UP WITH MODERATE ASSIST, THE PT TODAY HAD REMAINED CALM AND COOPERATIVE FOR MOST OF THE DAY, UP IN THE CHAIR FOR LUNCH HAD A GOOD APPETITE, THE PT LATER IN THE AFTERNOON BECAME AGITATED AND ATTEMPTING TO CLIMB OUT OF BED UNASSISTED, ATIVAN WAS GIVEN AT THAT TIME, THE PT APPEARS TO BE BREATHING EASILY AT REST CALL LIGHT IN REACH, BED ALARM ON, PT REMAINS IN VEST RESTRAINT AT THIS TIME
--- NOTE | 2019-09-09 19:30 | NUR ---
review of pt placment needs with [facility] nurse and youth care professional. vargas is after discussing with [facility] staff suggested goal is getting the facility to admit pt to their physicactric unit until she if more fatil and bedridden then hospice floor..
--- NOTE | 2019-09-10 05:14 | NUR ---
SHIFT SUMMARY ASSUMED CARE OF PT AT 1900. PT IS ALERT BUT NOT ORIENTED. PT UNABLE TO ANSWER ASSESSMENT QUESTIONS. HEART SOUNDS REGULAR, LUNG SOUNDS DIMINISHED, HARD TO HEAR DUE TO PT TALKING AND NOT DEP BREATHING, RESPIRATIONS EVEN AND UNLABORED. PT WAS IN PHYLLIS VEST T/O THE NIGHT, PT PULLED AT VEST CONSANTLY AND SAID THAT SHE WAS LEAVING. PT WAS AGITATED AND DIDNT TAKE HER MEDS FROM THIS NURSE BUT ANOTHER NURSE WAS ABLE TO CONVINCE HER. PT WAS INCONTINENT T/O THE NIGHT. PT SLEPT T/O THE NIGHT. NO ACUTE EVENS DUING THE NIGHT. CALL LIGHT IN REACH, BED IN LOWEST POSITION, WILL CONTINUE TO MONITOR UNTIL DAYSHIFT NURSE ARRIVES.
--- NOTE | 2019-09-10 16:57 | NUR ---
PT AOX1 AND VERY CONFUSED. PT TALKS, BUT NONE OF IT SEEMS TO MAKE MUCH SENSED. PT STATED SHE DID NOT WANT TO TAKE HER MEDICAITON, BUT OPENED HER MOUTH FOR HER MEDS AND STATED IT TASTED GOOD. HAD BEEN ANXIOUS AT START OF SHIFT CALLING OUT AND BEING VERY VOCAL. PT TREATED PER EMAR FOR ANXIETY AND THIS SEEMS TO HAVE BEEN EFFECTIVE. NO DISTRESS NOTED AT THIS TIME. PT NEEDS POSE VEST SHE IF VERY IMPULSIVE AND FIDGETS AROUND A LOT.PT WAS UP IN CHAIR FOR MEALS AND DID WELL. WILL CONTINUE TO MONITOR.
--- NOTE | 2019-09-11 04:42 | NUR ---
SHIFT SUMMARY ASUMED CARE OF PT AT 1900. PT IS ALERT BUT NOT ORIENTED AT ALL. HEART SOUNDS REUGLAR, LUNG SOUNDS DIMINISHED, DIFFICULT TO ASSESS DUE TOPT NOT BEING ABLE TO STOP TALKING. PT WAS ABLE TO TAKE MEDICATIONS CRUSHED IN APPLESAUCE. PT SLEPT T/O THE NIGHT. PT WAS INCONTINENT T/O THE NIGHT. NO ACUTE EVENTS DURING THE NIGHT. CALL LIGHT IN REACH, BED IN LOWEST POSITION, WILL CONTINUE TO MONITOR UNTIL DAYSHIFT NURSE ARRIVES.
--- NOTE | 2019-09-11 17:35 | NUR ---
PT AOX1 AND VERY CONFUSED. PT HAS BEEN REFUSING TO EAT AND DOESN'T WANT TO DRINK MUCH EVEN IF OFFERED. PT STILL IN HER POSE SHE CONTINUE TO BE IMPULSIVE. PT HAS BEEN HALUCINATING ALL DAY. WILL CONTINUE TO MONITOR.
--- NOTE | 2019-09-12 16:51 | NUR ---
Routine spiritual care visit. Candy appears quite frail. She mumbles incoherantly and was focused on trying to get out of her chair. She was restrained by satya vest. She allowed me to hold her hand for a while, but did not interact with me otherwise. I provided loving presence. I will continue to follow Candy as case-load permits.
--- NOTE | 2019-09-12 17:45 | NUR ---
PT AOX1 AND VERY CONFUSED. PT HALUCINATES AND TALKS TO HERSELF. PT IN A POSE AT THIS TIME. BED ALARM IS IN PLACE PT CONTINUES TO TRY TO GET OUT OF BED OR CHAIRS. PT IS RESTING IN BED AT THIS TIME NO DISTRESS NOTED WILL CONTINUE TO MONITOR.
--- NOTE | 2019-09-13 05:09 | NUR ---
SHIFT SUMMARY PT HAS HAD NO ACUTE CHANGES THIS SHIFT, A&O TO SELF ONLY, SLEPT T/O MOST OF NIGHT, SLEEPING AT THIS TIME, WILL CONT TO MONITOR UNTIL REPORT GIVEN TO DAY RN.
--- NOTE | 2019-09-13 16:55 | NUR ---
SHIFT SUMMARY PATIENT DENIES PAIN, NAUSEA, AND HSORTNESS OF BREATH. PATIENT ORIENTED ONLY TO SELF. PATIENT CONTINUES TO NEED PHYLLIS VEST. PATIENT CONFUSED AND ATTEMPTING TO GET OUT OF BED/CHAIR WITHOUT ASSITANCE. PATIENT BECOMES VERY AGITATED WHEN STAFF WILL NOT TAKE HER HOME. PATIENT UP IN CHAIR FOR MEALS, AND SITTING IN HALLWAY WITH STAFF THIS AFTERNOON. PATIENT UP ONE ASSIST STAND PIVOT TO CHAIR/BSC. CALL LIGHT IN REACH.
--- NOTE | 2019-09-14 04:52 | NUR ---
SHIFT SUMMARY PT SWITCHED TO COMFORT MEASURES YESTERDAY DURING DAYSHIFT. COMFORT ASSESSED T/O SHIFT. SHE HAS DENIED PAIN, AND HAS DENIED NEEDS MOST TIMES WHEN ASKED. PT HAS REQUESTED PO FLUIDS AND SNACKS THIS SHIFT. PT HAS HAD CRANBERRY JUICE, YOGURT AND PUDDING. THE NEED FOR PHYLLIS VEST CONTINUES. PT HAS GOTTEN UP TO USE BSC, AND IS VERY DIFFICULT TO DIRECT AND REQUIRED THE HELP OF TWO STAFF. PT IS RESTLESS AND FIGETY. SHE DISROBES WHILE IN BED AND HAD AN INCONTINENT EPISODE REQUIRING A COMPLETE LINEN CHANGE. A/OX1 TO SELF WITH NONSENSICAL SPEECH. NO ACUTE CHANGES OVERNIGHT. BED IN LOWEST POSITION, CALL LIGHT WITHIN REACH.
--- NOTE | 2019-09-14 09:30 | NUR ---
COMFORT CARE VISIT AND CASE CONFERENCE: Visit to pt in her room. She is sitting up in a chair with overbed table & breakfast in front of her. She is awake and focused on her breakfast, eating. She is nonverbal during my brief visit. She is not exhibiting any nonverbal indicators of pain, anxiety, agitation or distress at this time. Spoke with Dylan Rhodes re: long standing advanced directive and reviewed Advanced directive completed years ago that we had obtained from the [facility] in April of this year. See Ethics note from this am in regard to communication with family and DrPraveen Quach Care will remain available for s/s management and support as needed.
--- NOTE | 2019-09-14 15:40 | NUR ---
INCONTINENT OF LARGE AMT URINE, HAD REMOVED BRIEF AND INCONTINENCE PAD FROM HER BED. PT UNCOOPERATIVE WITH PERICARE, ATTENDS CHANGE, AND COMPLETE BED CHANGE.
--- NOTE | 2019-09-14 18:02 | NUR ---
SHIFT SUMMARY PATIENT MEDICATED X1 FOR PAIN AND X1 FOR AGITATION. PATIENT UP IN CHAIR FOR MEALS. POOR PO INTAKE. UP ONE ASSIST STAND PIVOT TO CHAIR. PATIENT ORIENTED TO SELF ONLY. PHYLLIS IN PLACE FOR SAFETY. CALL LIGHT IN REACH
--- NOTE | 2019-09-14 20:00 | NUR ---
1999 COMFORT CARE APPEARS TO BE SITTING QUIETLY IN BED. PULLING AT BLANKETS. NO ATTEMPTS AT THIS TIME TO EXIT BED. BED REMAINS IN LOWEST POSITION; ALARM ON. CALL LIGHT IN REACH. [facility].
--- NOTE | 2019-09-14 22:01 | NUR ---
2200 COMFORT CARE ATTEMPTING TO EXIT BED. ATTENDS CHANGED AND REPOSITIONED. NO ACUTE NEEDS AT THAT TIME. BED PLACED IN LOWEST POSITION; ALARM ON. WCTM.
--- NOTE | 2019-09-15 | NUR ---
0000 COMFORT CARE APPEARS TO BE RESTING. NO ACUTE NEEDS AT THIS TIME. BED REMAINS IN LOWEST POSITION; ALARM ON. WCTM.
--- NOTE | 2019-09-15 02:00 | NUR ---
0200 COMFORT CARE APPEARS TO BE RESTING. NO ACUTE NEEDS AT THIS TIME. BED REMAINS IN LOWEST POSITION; ALARM ON. WCTM.
--- NOTE | 2019-09-15 04:00 | NUR ---
0400 COMFORT CARE APPEARS TO BE RESTING. NO ACUTE NEEDS AT THIS TIME. BED REAMINS IN LOWEST POSITION; ALARM ON. WCTM.
--- NOTE | 2019-09-15 05:06 | NUR ---
SHIFT SUMMARY ALERT, ABLE TO MAKE NEEDS KNOWN. CONFUSION AND CONFABULATION NOTED INTERMITTENTLY. ATTEMPTED TO EXIT BED AT BEGINNING OF SHIFT. APPEARED ANXIOUS AT BEGINNING OF SHIFT; MEDICATED PER EMAR. ROUTINE ATTENDS CHECKS AND REPOSITIONING. APPEARED TO REST MUCH OF THE NIGHT. NO OTHER ACUTE CHANGES NOTED OVERNIGHT. BED REMAINS IN LOWEST POSITION; ALARM ON. WCTM. REPORT TO ONCOMING RN.
--- NOTE | 2019-09-15 06:10 | NUR ---
0610 COMFORT CARE APPEARS TO BE RESTING. NO ACUTE NEEDS AT THIS TIME. BED IN LOWEST POSITION; ALARM ON. WCTM.
--- NOTE | 2019-09-15 07:46 | NUR ---
PATIENT IS SLEEPING IN BED AT THIS TIME. NO COMPLAINTS
--- NOTE | 2019-09-15 09:44 | NUR ---
PATIENT WOKE UP TO TAKE MEDICATIONS. REPOSTIONED BY RN. NO COMPLAINTS
--- NOTE | 2019-09-15 12:02 | NUR ---
PATIENT IS SLEEPING. LIBRARY SALES CONSULTANT GAVE THE PATIENT A BEDBATH TODAY. NO COMPLAINTS
--- NOTE | 2019-09-15 17:50 | NUR ---
PATIENT IS SLEEPING
--- NOTE | 2019-09-15 18:10 | NUR ---
up in chair today no overt symptoms interacting with staff.
--- NOTE | 2019-09-15 18:16 | NUR ---
Routine spiritual care note: Melinda was calm and being fed her lunch when I visited. She said little, but responded "I love you too" when I told her I loved her. She seems comfortable and quite peaceful. Nursing doing a great job keeping her that way. Prayer provided. Staff Nuclear Medicine Technologist services will remain available.
--- NOTE | 2019-09-15 18:33 | NUR ---
PATIENT IS ALERT. SHE IS CONFUSED. SHE ATE HER LUNCH AND DINNER WITH ASSISTANCE. SHE HAD TWO INCONTINENT BOWEL MOVEMENTS. SHE GOT OUT OF THE BED TO THE RECLINER. SHE IS NOW BACK IN BED. PHYLLIS VEST IS IN PLACE. PATIENT WAS JUST CHANGED AND REPOSITIONED.
--- NOTE | 2019-09-15 19:05 | NUR ---
190 COMFORT CARE APPEARS TO BE RESTING. NO ACUTE NEEDS AT THIS TIME. BED REAMINS IN LOWEST POSITION; ALARM ON. WCTM.
--- NOTE | 2019-09-15 22:00 | NUR ---
2200 COMFORT CARE PULLING AT RESTRAINTS AND ATTEMPTING TO DISROBE. NOT ACTIVELY TRYING TO EXIT BED. ROUTINE ATTENDS CHECK AND CHANGE. REPOSITIONED. NO OTHER ACUTE NEEDS AT THIS TIME. BED IN LOWEST POSITION; ALARM ON. WCTM.
--- NOTE | 2019-09-15 22:52 | NUR ---
1999 COMFORT CARE OFFERED PO FLUIDS; DECLINED. NO ACUTE NEEDS AT THIS TIME. BED REMAINS IN LOWEST POSITION. ALARM ON. WCTM.
--- NOTE | 2019-09-16 | NUR ---
0000 COMFORT CARE APPEARS TO BE RESTING. NO ACUTE NEEDS AT THIS TIME. BED REMAINS IN LOWEST POSITION; ALARM ON. WCTM.
--- NOTE | 2019-09-16 01:45 | NUR ---
0145 COMFORT CARE APPEARS TO BE RESTING. NO ACUTE NEEDS AT THIS TIME. BED REMAINS IN LOWEST POSITION; ALARM ON. WCTM.
--- NOTE | 2019-09-16 03:45 | NUR ---
0345 COMFORT CARE AWAKE, DISROBING. ATTENDS CHECK/CHANGE. REPOSITION. OFFERED PO FLUIDS. PULLING AT RESTRAINTS. AGITATED; MEDICATED PER EMAR. NO OTHER NEEDS AT THIS TIME. BED IN LOWEST; ALARM ON. WCTM.
--- NOTE | 2019-09-16 04:47 | NUR ---
SHIFT SUMMARY ALERT. CONFUSION AND CONFABULATION NOTED INTERMITTENTLY. REMOVES ATTENDS AFTER VOID. NO ATTEMPTS TO EXIT BED; HOWEVER PULLING AND TUGGING AND LINES/CLOTHING. APPEARED ANXIOUS DURING SHIFT; MEDICATED PER EMAR. ROUTINE ATTEND CHECKS AND REPOSITIONING. OFFERED PO FLUIDS PERIODICALLY; REFUSED. APPEARED TO REST FOR SEVERAL HOURS. NO OTHER ACUTE CHANGES NOTED. BED REAMINS IN LOWEST POSITION; ALARM ON. WCTM. REPORT TO ONCOMING RN.
--- NOTE | 2019-09-16 06:00 | NUR ---
0600 COMFORT CARE APPEARS TO BE AGITATED; REMOVED ATTENDS AGAIN. PULLING AT RESTRAINTS. WILL CHANGE AND REPOSITION. OFFER PO FLUIDS. WCTM. BED IN LOWEST POSITION; ALARM ON.
--- NOTE | 2019-09-16 08:13 | NUR ---
PATIENT IS SLEEPING AT THIS TIME.
--- NOTE | 2019-09-16 10:22 | NUR ---
PATIENT ATE HER BREAKFAST THIS MORNING. NO COMPLAINTS AT THIS TIME
--- NOTE | 2019-09-16 18:15 | NUR ---
PATIENT IS EATING DINNER
--- NOTE | 2019-09-16 18:19 | NUR ---
PATIENT IS ALERT. SHE IS CONFUSED. SHE IS EATING DINNER WITH ASSISTANCE NOW. PHYLLIS VEST IN PLACE. WILL CONTINUE TO MONITOR.
--- NOTE | 2019-09-17 04:51 | NUR ---
SHIFT SUMMARY: CONT ON COMFORT CARE STATUS. AAO TO SELF. TALKS AND MUMBLES, A LITTLE DIFFICULT TO UNDERSTAND. RESISTS BRIEF CHANGES TONIGHT BY STIFFENING BODY AND GRIPPING ATTENDS FIRMLY IN HANDS. KICKING LEGS OUT OF BED AND SEEMS VERY RESTLESS AT HS. ATIVAN ADMINSTERED W/GOOD EFFECT. HAS SEEMED RELAXED AND SLEPT MOSTLY THROUGH THE NIGHT. CONT W/PHYLLIS VEST TO PREVENT PT FROM SELF AMBULATING. TOLERATING IT WELL. DENIES ANY PAIN. NO ACUTE CHANGES TONIGHT.
--- NOTE | 2019-09-17 14:17 | NUR ---
she is resting no issues today.
--- NOTE | 2019-09-17 17:53 | NUR ---
SHIFT SUMMARY- PT IS ALERT. SHE DOES NOT FOLLOW INSTRUCTIONS. SHE IS EATING AND DRINKING WELL. SHE IS INCONTINENT. SHE IS IN A PHYLLIS VEST FOR SAFTEY.
--- NOTE | 2019-09-18 05:56 | NUR ---
SHIFT SUMMARY: COMFORT CARE. AAO TO SELF. REPEATS WORDS SPOKEN TO HER OCCASIONALLY. PT MORE RELAXED TONIGHT. DANGLES LEGS OFF OF THE SIDE OF THE BED WHILE AWAKE IN ATTEMPTS TO GET OOB. FIDGETS W/BEDDING, CLOTHES, PHYLLIS VEST, ATTENDS WHILE AWAKE. DOES NOT APPEAR ANXIOUS. SPEAKING TO STAFF QUIETLY, BUT DIFFICULT TO UNDERSTAND. ACCEPTS WATER WHEN OFFERED. PHYLLIS VEST ON, PT SHILA IT WELL. DENIES PAIN. SLEPT WELL FOR MOST OF THE NIGHT. WILL CONT TO MONITOR.
--- NOTE | 2019-09-18 15:28 | NUR ---
Up in chair sleeping appears more frail. Will review needs with nursing.
--- NOTE | 2019-09-18 17:41 | NUR ---
SHIFT SUMMARY- PT IS CONFUSED. SHE WAS UP TO THE CHAIR THIS AFTERNOON. SHE SLEPT FOR MUCH OF THIS SHIFT. SHE IS EATING AND DRINKING WELL. SHE HAD AN INCONTINENT BM THIS SHIFT.
--- NOTE | 2019-09-19 06:13 | NUR ---
SHIFT SUMMARY: COMFORT CARE. AAO TO SELF. MUMBLES TO SELF. DIFFICULT TO UNDERSTAND. SPEECH IS NONSENSICAL. NO S/S OF PAIN OR AGITATION TONIGHT. SLEPT THROUGH MUCH OF THE NIGHT. FIDGETS AND GENTLY PULLS AT BEDDING, ATTENDS, AND PHYLLIS VEST WHILE AWAKE. NO ACUTE CHANGES. WILL CONT TO MONITOR.
--- NOTE | 2019-09-19 16:58 | NUR ---
Routine spiritual care note: Candy did not respond to me today. Instead, she was focused on chewing off her fingernails and flicking them off the side of her bed. She appeared calm and comfortable. I will remain available.
--- NOTE | 2019-09-19 18:52 | NUR ---
SHIFT SUMMARY. ALERT, ORIENTATED TO SELF. 1 MAX ASSIST TO CHAIR. PT MEDICATED FOR GENERALIZED PAIN ONCE THIS SHIFT. NO N/V, SOB. POOR MEAL INTAKE. PT TAKEN OUT OF RESTRAINTS THIS AFTERNOON PER DR. GRULLON'S REQUEST, NEW MEDICATION ORDERED FOR AGITATION. NO OTHER CHANGES OR CONCERNS.
--- NOTE | 2019-09-20 06:50 | NUR ---
SHIFT SUMMARY COMFORT CARE. ALERT, CONFUSED. FOLLOWS SOME SIMPLE DIRECTIONS, NEEDS REDIRECTING & REORIENTING FREQUENTLY. AT BEGINNING OF SHIFT PT WAS VERY IMPULSIVE & FREQUENTLY SETING OFF BED ALARM, WOULD NOT STAY IN BED. GAVE CARBAMZIPINE & 2.5 MG ZYPREXA PER ORDERS FOR PM MEDS & 1 HR AFTER PT WAS STILL SETTING OFF BED ALARM & WOULD NOT STAY IN BED, THEREFORE MEDICATED W/5MG ZYPREXA. 1-2 HR POST MED GIVEN PT WAS RESTING COMFORTABLY & HAS BEEN SLEEPING SOUNDLY SINCE. INCONTINENT, ATTENDS CHANGED. REPOSITIOND PRN. CALL LIGHT IN REACH.
--- NOTE | 2019-09-20 10:47 | NUR ---
PT RESTING IN BED WITH EYES CLOSED SINCE BEGINING OF SHIFT TILL NOW. NO S/SX OF DISTRESS OR DISCOMFORT.
--- NOTE | 2019-09-20 18:48 | NUR ---
SHIFT SUMMARY. PT CONTINUES WITH CONFUSION, ATTEMPTS TO GET OOB UNASSISTED, BED ALARM, CHAIR ALARM, AND CAMERA UTILIZED. PT C/O OF PAIN TWICE THIS SHIFT, MANAGED WELL WITH CURRENT ORDERS. PT BECAME AGITATED, PRN ZYPREXA GIVEN WITH GOOD RESULT. NO N/V OR SOB. PT ATE WELL FOR LUNCH AND DINNER, PT SLEEPING DURING BREAKFAST. NO NEW CHANGES OR CONCERNS.
--- NOTE | 2019-09-21 06:12 | NUR ---
SHIFT SUMMARY COMFORT CARE. NO ACUTE CHANGES THIS SHIFT. AOX SELF ONLY. FOLLOWS SIMPLE DIRECTIONS. NONSENSICAL SPEECH @TIMES, NOT RELATED TO TOPIC. NO S/S OF PAIN, N/V OR DYSPNEA. IMPULSIVE & TENDS TO SET OFF BED ALARM TRYING TO GET OUT OF BED, EASILY REDIRECTED TONIGHT. PLEASENT & COOPERATIVE W/CARE. CHANGED & REPOSITIONED PRN. CALL LIGHT IN REACH.
--- NOTE | 2019-09-21 16:57 | NUR ---
SHIFT SUMMARY PT HAS BEEN AWAKE ALL SHIFT. NO COMPLAINTS OF PAIN OR DISCOMFORT THIS SHIFT. PT EATING WELL WITH ASSISTANCE FROM STAFF. PT TRIES TO GET OUT OF BED OFTEN BUT COOPERATIVE AND DIRECTABLE. NO ACUTE CHANGES AT THIS TIME. WAITING FOR PLACEMENT. WILL CONTINUE TO MONITOR FOR COMFORT.
--- NOTE | 2019-09-21 18:01 | NUR ---
pt comfortable no needs idenified will continue to monitor for symptoms.
--- NOTE | 2019-09-21 19:42 | NUR ---
ASSUMED CARE. ANJALI WAS CRAWLING OUT OF BED. GOT HER BACK INTO BED. BED ALARM BACK ON. SHE WAS ABLE TO STATE DATE OF , PLACE. SHE DENIES PAIN OR DISCOMFORT. WILL GIVE HER TEA, TO HELP HER STAY BUSY. DENIES ANY OTHER NEEDS OR CONCERNS. WILL KEEP MONITORING HER.
--- NOTE | 2019-09-21 21:05 | NUR ---
PATIENT FINISHED HER TEA AND CRACKERS. TOOK HER MEDS IN APPLESAUCE. DENIED ANY OTHER NEEDS. BED ALARM ON.
--- NOTE | 2019-09-22 04:58 | NUR ---
PATIENT JUST RELAXING IN BED, NO PAIN NOTED. AWAKE AND WATCHING TV. NO CHANGES.
--- NOTE | 2019-09-22 05:27 | NUR ---
SHIFT SUMMARY: ANJALI WAS HER ACTIVE LITTLE SELF THIS SHIFT. WAS TRYING TO GET UP OUT OF BED. TEARING OFF HER CLOTHES AND THEM WANTING THEM BACK ON. SHE CONSTANTLY MOVING IN HER BED PULLING PILLOWS AND COVERS OFF ALL NIGHT. SHE DID SETTLE DOWN AFTER PM MEDS BUT STAYED AWAKE THROUGHOUT THE NIGHT, JUST WATCHING TV. NO PAIN NOTED. NO ACUTE CHANGES TO NOTE THIS SHIFT.
--- NOTE | 2019-09-22 07:59 | NUR ---
AM CARE PT AWAKE, TALKING WITH STAFF. ATTENDS CHANGED WITH BEAD MACHINE OPERATOR ASSISTANCE. PT PLEASANTLY CONFUSED. NO COMPLAINTS OF PAIN OR SHORTNESS OF BREATH AT THIS TIME. NO SIGNS OF DISCOMFORT AT THIS TIME. WILL CONTINUE TO MONITOR FOR COMFORT.
--- NOTE | 2019-09-22 15:00 | NUR ---
COMFORT CARE NOTE PT TRYING TO GET OUT OF BED AND WANTING TO GO HOME. PT GETTING ANGRY WHEN STAFF TALK WITH HER ABOUT STAYING. PT THINKS STAFF IS TRAPPING HER IN ROOM. THIS RN TRIED CALMING PT DOWN BUT UNABLE TO. THIS RN ADMINISTERED ZYPREX PER EMAR. PT TOOK MEDICATION CRUSHED IN A SPOONFUL OF APPLESAUCE. WILL MONITOR FOR EFFECTIVENESS. CALL LIGHT IN REACH. BED ALARM ON FOR SAFETY.
--- NOTE | 2019-09-22 16:00 | NUR ---
COMFORT CARE PT CONTINUES TO TRY TO GET OUT OF BED CONTINUOSLY. PT IS DISROBING GOWN AND THROWING THINGS THAT SHE CAN REACH. PT CONTINUES TO THINK STAFF ARE TRAPPING HER. ZYPREXA GIVEN EARLIER AND PT CONTINUES TO BE AGITATED. ADMINISTERED ATIVAN PER EMAR FOR AGITATION. PT DENIES PAIN. NO SIGNS OF PAIN. WILL CONTINUE TO MONITOR.
--- NOTE | 2019-09-22 16:33 | NUR ---
Review of pt with nursing. Spent some tiem with pt increased delirium today. Frequently stated she needed to get out of the room. changed the tv off of the news and to something calmer. will review prn meds and continue diversion visits.
--- NOTE | 2019-09-22 18:03 | NUR ---
SHIFT SUMMARY PT BECAME AGITATED THIS AFTERNOON AND WAS TRYING TO GET OOB BED CONTINUOUSLY. THIS RN AND SCHOOL INSPECTOR WERE UNABLE TO CALM PT. ZYPREXA WAS GIVEN AND PT CONTINUED TO BE AGITATED. ATIVAN GIVEN AN HOUR LATER AND NOW PT IS CALM IN ROOM AND NO LONGER AGITATED AND TRYING TO GET OUT OF BED CONTINOUSLY. PT EATING DINNER AT THIS TIME. WILL CONTINUE TO MONITOR FOR COMFORT AND REPORT TO ONCOMING RN.
--- NOTE | 2019-09-22 19:15 | NUR ---
ASSUMED CARE. ANJALI IS CALM, SITTING UP IN BED, EATING HER DINNER SLOWLY. DENIES PAIN OR DISCOMFORT. LUNGS ARE CLEAR, HR REGULAR. TALKATIVE. ATTENDS DRY AT THIS TIME. DENIES ANY NEEDS OR WANTS. BED ALARM IS ON. WILL CONTINUE TO MONITOR.
--- NOTE | 2019-09-22 20:12 | NUR ---
PATIENT CRAWLING OUT OF BED SEVERAL TIMES. STATING SHE HAD TO GET TO HER HOME. TOLD HER SHE IS IN THE HOSPTIAL. SHE DID NOT REORIENT. GOT HER BACK IN BED. ADMINISTERED NIGHT MEDS.
--- NOTE | 2019-09-22 22:26 | NUR ---
ANJALI WAS CRAWLING OUT OF BED AGAIN, WANTING TO TAKE A BATH IN HER TUB. TOLD HER WE DON'T HAVE A BATH. SHE TRIED TO AGRUE. WE HAD HER SIT ON BENCH WHILE CUSTOM TAILOR APPRENTICE CHANGED THE BED AGAIN DUE TO SPILLED COFFEE. GAVE HER A SPONGE BATH FROM HEAD TO TOE. PUT CLEAN GOWN AND ATTENDS ON. SLIGHT SPEAR OF BM NOTED. ATTENDS SATURATED. SHE WAS SO TIRED SHE COULD NOT KEEP HER EYES OPEN DURING THE WHOLE THING BUT STILL WOULD AGRUE. GOT HER BACK TO BED, SHE SAID SHE WAS FREEZING. TUCKED HER IN WITH COVERS AND PLACED THE ALARM BACK ON. HOPEFULLY SHE SLEEPS A LITTLE SINCE SHE HAS NOT SLEPT WELL IN SEVERAL DAYS.
--- NOTE | 2019-09-23 05:51 | NUR ---
SHIFT SUMMARY: ANJALI WAS A BUSY BEE AT START OF SHIFT. INSISTING SHE GET INTO HER BATHTUB THAT WAS NOT HERE. COMPLETE LINEN CHANGE DONE, SEVERAL ATTENDS CHANGES. BED BATH DONE. TOOK NIGHT MEDS, AND SLEPT TILL THIS AM AROUND 4. NO ACUTE CHANGES OCCURRED THIS SHIFT. SHE REMAINS TALKING TO HER SELF IN THE ROOM, BED ALARM IS ON ALONG WITH CAMERA. WILL REPORT TO DAY SHIFT RN.
--- NOTE | 2019-09-23 05:55 | NUR ---
PATIENT SLEEPING, NO CHANGES, OR SIGNS OF DISTRESS. BED ALAARM ON.
--- NOTE | 2019-09-23 07:17 | NUR ---
ASSUMED CARE OF PT- REPORT COMPLETED WITH NIGHT RN. PT ON COMFORT CARE, Q2 TURN. PT TENDS TO STRIP HERSELF NAKED AND IS A HIGH FALL RISK. PT ON THE MONITORS FOR FALL PREVENTION. PER REPORT PLAN IS TO DETERMINE GUARDIANSHIP AND ACHIEVE PLACEMENT. PT LAYING IN BED CALL LIGHT IN REACH, APPEARS TO BE SLEEPING SOUNDLY, NO S&S OF DISTRESS RESP E/U.
--- NOTE | 2019-09-23 15:13 | NUR ---
PT AWAKE, NOT ORIENTED BUT ANXIETY FROM EARLIER SEEMS TO HAVE RESOLVED. SHE SPEAKS CALMLY BUT NONSENSICALLY. NO S&S OF DISTRESS NOTED AT THIS TIME WILL CTM.
--- NOTE | 2019-09-23 17:01 | NUR ---
pt calmer today still talking to the tv will continue to put musci or gently shows on tv. goal is placemnt.
--- NOTE | 2019-09-23 18:12 | NUR ---
SHIFT SUMMARY- PT HAS HAD NO ACUTE CHANGES SINCE THE START OF THE SHIFT. PT SPEAKS IN NONSENSICAL LANGUAGE WITH A FLIGHT OF IDEAS. PT BECAME ANXIOUS AND WAS MEDICATED FOR ANXIETY WITH PO ATIVAN. PT SEEMS MORE RELAXED THIS EVENING. SHE ATE A SALT PACKET OFF OF HER MEAL TRAY WHEN THE AID RAN TO ANSWER AN ALARM. PT ATTEMPTED TO EAT HER CLOTHING PROTECTOR SEVERAL TIMES WHILE SHE WAS BEING ASSISTED WITH HER DINNER.
--- NOTE | 2019-09-23 19:58 | NUR ---
ASSUMED CARE. PATIENT RESTING IN BED, MOVING AROUND BUT STAYING IN BED. TALKING TO SELF. DOES NOT NOW WHERE SHE IS AT OR WHAT IS GOING ON. DENIES ANY PAIN OR DISCOMFORT. ATTENDS DRY. WILL ADMINISTER NIGHT MEDS, AND MONITOR.
--- NOTE | 2019-09-23 22:30 | NUR ---
PATIENT RESTING IN BED, TALKING TO SELF. CALM. BED ALARM ON. CAMERA ON. WILL CONTINUE TO MONITOR.
--- NOTE | 2019-09-24 04:32 | NUR ---
SHIFT SUMMARY: ANJALI HAD A GOOD NIGHT. SHE ONLY HAD 2 EVENTS OF STRIPING OFF HER CLOTHES AND URINATING ON THE BED. OTHER THEN THAT SHE HAS SLEPT WELL THE ENTIRE SHIFT. NO ACUTE CHANGES, WILL REPORT OFF.
--- NOTE | 2019-09-24 06:24 | NUR ---
ANJALI IS AWAKE, PULLED OFF ATTENDS AND URINATED ON THE BEDDING USING THE SHEETS TO WIPE HERSELF. CHANGED THE LINEN, PUT GOWN AND ATTENDS BACK ON HER AFTER SKIN CARE WAS PERFORMED. BED ALARM ON.
--- NOTE | 2019-09-24 07:00 | NUR ---
ASSUMED CARE OF PT- REPORT COMPLETED WITH NIGHT RN ANABELL. PER REPORT PT MEDICATED T/O THE NIGHT AND SLEPT WELL. PT CURRENTLY AWAKE AND SITTING UP IN BED CARRYING ON CONVERSATIONS WITH NO ONE.
--- NOTE | 2019-09-24 09:30 | NUR ---
WENT IN TO SPEAK TO PT AND SHE SEEMED AGGITATED OFFERED HER MEDICATION TO HELP HER ANXIETY, SHE STATED "YOU MEAN MEDICINE THAT MAKES IT SO I DON'T KILL YOU" STAFF TOLD HER YES WE WOULD LIKE HER TO NOT KILL US; THE PT STATED "GIVE ME THAT BECAUSE I LIKE YOU, I DON'T WANT TO KILL YOU." MEDICATE PT PRN ATIVAN.
--- NOTE | 2019-09-24 10:39 | NUR ---
Pt resting in bed wit her eyes closed. Pt appears comfortable with no S/S of distress at this time. Spoke with Bedside RN Mirella and discussed case. Mirella reports Pt was experiencing significant anxiety and Ativan was offered. Symptoms currently managed. No other concerns reported at this time. Palliative Care will remain available.
--- NOTE | 2019-09-24 16:06 | NUR ---
PT CURRENTLY SITTING UP IN BED. PLEASENTLY CONFUSED AT THIS TIME. WIDE AWAKE.
--- NOTE | 2019-09-24 17:24 | NUR ---
PT CURRENTLY SITTING UP IN BED EATING DINNER WITH ASSISTANCE. PT SEEMS TO EAT RANDOM OBJECTS ON HER TRAY (i.e. SALT PACKETS, CREAMER, STRYOFOAM CUPS ETC.) PT SHOULD HAVE SUPERVISION WITH MEALS
--- NOTE | 2019-09-24 18:11 | NUR ---
SHIFT SUMMARY- PT MEDICATED PRN FOR ANXIETY AND AGITATION TODAY. HER BROTHER CALLED TO CHECK IN ON HER TO SEE HOW SHE WAS DOING. HE RECIEVED AN UPDATE AND STATED HER IS NO LONGER ALIVE BUT SHE OFTEN GETS UPSET WITH HIM (SORCE OF HER AGGITATION). PT BROTHER STATED HE DOES NOT CALL AND SPEAK WITH HER BECAUSE HE CAUSES HER UNECESSARY ANXIETY AND AGITATION. PT CURRENTLY UP IN BED SHE ATE PART OF DINNER. PT MUST BE MONITORED WITH HER MEALS SHE TENDS TO EAT NON EDIBLE ITEMS ON HER TRAY. PASSED ON TO ACCIDENT INVESTIGATOR AND ASKED THAT SHE PASS IT ON IN REPORT TO NIGHT ACCIDENT INVESTIGATOR.
--- NOTE | 2019-09-24 22:27 | NUR ---
09/24/19 2200 DOZING ON AND OFF. DENIES ANY PAIN. SIPPING WATER WITH ASSISTENCE. WILL GIVE MEDS WITH APPLESAUCE. REPOSITIONED IN BED FOR COMFORT.
--- NOTE | 2019-09-25 00:09 | NUR ---
09/25/19 0000 SLEEPING AT THIS TIME WITHOUT DISTRESS.
--- NOTE | 2019-09-25 01:59 | NUR ---
09/25/19 0200 SLEEPING AT THIS TIME. WAS RESTLESS EARLIER AND INCONTINENCE BRIEFS CHANGED ALONG WITH BED LINENS.
--- NOTE | 2019-09-25 04:34 | NUR ---
09/25/19 0400 PT SLEEPING WELL AT THIS TIME WITHOUT DISTRESS. ALERT ONLY TO SELF. ATTMEPTED TO REPOSITION HER PER PROTOCOL BUT SHE WILL TURN HERSELF BACK TO HER FAVORITE SIDE WHEN STAFF LEAVE. DENIES PAIN OR OTHER S/S.
--- NOTE | 2019-09-25 15:52 | NUR ---
Spoke with nursing and rec'd an update. Pt is at times calling out for her brother Waqar to come take her home. Pt is able to be redirected by staff who attempt to assist to reorient her. No acute issues voiced by nursing at this time. PC will continue to monitor for comfort care and symptom management.
--- NOTE | 2019-09-25 16:59 | NUR ---
SHIFT SUMMARY- PT ALERT TO SELF. COMPLETELY CONFUSED AND OUT OF TOUCH WITH REALITY MULTIPLE ATTEMPTS MADE TO REORIENT HER BUT IT ONLY WORKS FOR A FEW MINUTES AND THEN SHE IS BACK AT IT AGAIN. SHE HAS BEEN MORE ANXIOUS TODAY THAN PREVIOUS SHIFTS. BED BATH PERFORMED AT THE REQUEST OF THE PT. PT CURRENTLY SITTING UP IN BED EATING DINNER WITH ASSISTANCE. SHE STILL ATTEMPTS TO EAT NON FOOD ITEMS ON HER TRAY. WILL PASS ON IN REPORT TO NIGHT RN.
--- NOTE | 2019-09-25 18:04 | NUR ---
PT WAS NOT MEDICATED AT THE TIME OF THE PREVIOUS ASSESSMENT IT WAS TOO SOON FOR THE MEDICATION HOWEVER AFTER DINNER SHE SEEMED TO CALM DOWN AND NO LONGER IS YELLING AND SCREAMING FOR HER BROTHER.
--- NOTE | 2019-09-25 21:27 | NUR ---
09/25/191999 PT SLEEPING QUIETLY IN BED. BED ALARM ON. CONTINOUS VIDEO MONITORING IN EFFECT.
--- NOTE | 2019-09-25 22:46 | NUR ---
09/25/19 2200 STILL ANXIOUS AND RESTLESS THIS EVENING. SEE MAR FOR MED GIVEN. ENCOURAGED TO GET READY FOR SLEEP NOW. PT STATES,"OKAY."
--- NOTE | 2019-09-26 02:26 | NUR ---
09/26/19 0200 PT SLEEPING WELL AT THIS TIME.
--- NOTE | 2019-09-26 06:03 | NUR ---
09/26/19 0605 PT SLEEPING WELL AT THIS TIME. HAS BEEN INCONTINENT OF URINE AND BRIEFS CHANGED PRN. FAIR ORAL INTAKE WITH ENCOURAGEMENT. UNEVENTFUL NIGHT.
[2019-09-26] MEDS ORDERED: Afrin15 ML (11:00)
[2019-09-26] MEDS ORDERED: ALBU2.5V5 INH (11:01)
[2019-09-26] MEDS ORDERED: AQUAPHOR99 GM TOP (11:03)
--- NOTE | 2019-09-26 12:19 | NUR ---
PT RESTING QUIETLY IN BED. CALL LIGHT WITHIN REACH. BED IN LOWEST LOCKED POSITION AND BED ALARM ON.
--- NOTE | 2019-09-26 14:17 | NUR ---
PT RESTING COMFORTABLY IN BED WITH EYES CLOSED. CALL LIGHT IN REACH.
--- NOTE | 2019-09-26 18:02 | NUR ---
SHIFT SUMMARY: PT IS CONFUSED. SHE RESTED QUIETLY IN ROOM FOR MOST OF THE MORNING. THIS AFTERNOON SHE HAS BECOME MORE AGGITATED AND CONFUSED. SHE WAS MEDICATED PER ORDERS. SEE EMAR FOR MEDICATION ADMINISTRATION. SHE BRIEFLY SPOKE TO HER BROTHER "RYAN" ON THE PHONE THIS AFTERNOON BUT WAS UNABLE TO HOLD A CONVERSATION WITH HIM. SHE HAS A GOOD APPETITE TODAY AND WAS ABLE TO EAT THE MAJORITY OF ALL OF HER MEALS. WILL CONTINUE TO MONITOR UNTIL GIVING REPORT TO NIGHT RN.
--- NOTE | 2019-09-26 18:07 | NUR ---
LATE ENTRY FOR 0800. PT RESTING QUIETLY IN BED.
--- NOTE | 2019-09-26 19:06 | NUR ---
Routine spiritual care note: Melinda was calm and talkative this afternoon. 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 She also expressed some sorrow with her estrangement from her dtr Tammy. She mumbles incoherantly most of the time and had trouble focusing. She appears well cared-for by nursing. She told me she feel ready to and is not afraid. I will remain available.
--- NOTE | 2019-09-26 20:42 | NUR ---
09/26/191999 SLEEPING IN BED AT THIS TIME. NO DISTRESS NOTED.
--- NOTE | 2019-09-26 23:16 | NUR ---
09/26/192099 PT BECOMING ANXIOUS AND RESTLESS IN BED. DENIED ANY DISCOMFORT OR S/S. MEDICATED PER MAR.
--- NOTE | 2019-09-27 00:48 | NUR ---
09/27/19 0000 SLEEPING WITHOUT DISTRESS OR DISCOMFORT. BED ALARM ON AND SIDERAILS UP. ON CONTINUOUS VIDEO MONITORING FOR SAFETY.
--- NOTE | 2019-09-27 04:35 | NUR ---
09/27/19 0400 SLEEPING WELL THIS SHIFT. NO DISTRESS NOTED. PT MOVES AND TURNS SELF FROM SIDE TO SIDE.
--- NOTE | 2019-09-27 06:09 | NUR ---
09/27/19 0600 PT AWAKENED FOR REPOSITIONING AND BRIEF CHANGE FOR INCONTINENCE OF URINE. GOOD ORAL AND MADELYN-CARE GIVEN. DENIES ANY DISCOMFORT OR S/S. BETTER NIGHT FOR SLEEPING THAN TWO PREVIOUS NIGHTS.
--- NOTE | 2019-09-27 08:15 | NUR ---
REMOTE MONITORING THIS RN VERIFIED WITH NATHALIE REMOTE MONITOR THAT PATIENT IS VISIBLE AND ON CAMERA.
--- NOTE | 2019-09-27 16:13 | NUR ---
Shift Summary A/Ox1, cooperative with care. Patient slept most of the day and awoken for meals. Currently resting in bed and being restless stating "I want to go home. I will feel much better when I sleep in my bed." Patient has made several attempts to climb out of bed, medicated for agitation x 1. Medicated for pain x 1. No acute changes, will continue to monitor.
--- NOTE | 2019-09-28 05:32 | NUR ---
SHIFT SUMMARY: PT IS ALERT AND CONFUSED. PT IS COMBATIVE AT TIMES. PT DOES NOT USE HER CALL LIGHT. PT ATTEMPTED TO GET OUT OF BED SEVERAL TIMES EARLY IN THE NIGHT. PT INCONTINENT, CHANGED AND CLEANED NEEDED. PT SHOWS NO S/S FOR PAIN, NAUSEA, VOMITING, OR SOB. NO ACUTE CHANGES OR COMPLICATIONS OVERNIGHT. WILL REPORT TO DAY NURSE.
--- NOTE | 2019-09-28 13:02 | NUR ---
PAL CARE COMFORT CARE VISIT AND CASE CONFERENCE WITH PT'S BEDSIDE RN. Pt is sleeping with hob elevated and mouth open. RN reports good s/s management and pt eating breakfast well today. Observed pt for nonverbal s/s in her sleep. No nonverbal indicators of anxiety, agitation, pain or distress noted at this time. Pal care to remain available for s/s management needs and support.
--- NOTE | 2019-09-28 17:49 | NUR ---
SHIFT SUMMARY PT AWAKE AT START OF SHIFT, RESTING QUIETLY, HF. PT WAS CO-OP FIRST PART OF THE DAY, BECOMING AGITATED FOR THE REST OF THE DAY. SEROQUEL GIVEN PER EMAR. PT CALMED SLOWLY FOR A SHORT WHILE. PT'S BROTHER, FROM [place], CALLED WHILE PT WAS SITTING IN CHAIR IN [place]. BROTHER TO CALL BACK AFTER DINNER. PT BECOMING VERY AGITATED AFTER EATING. SEROQUEL GIVEN AGAIN. PT SITTING IN RECLINER AT THIS TIME. CHANGED FOR INCONTINENCE THRU OUT THE DAY. BED BATH AND LINEN CHANGED DONE. NO ACUTE DISTRESS NOTED. PT CONTINUES TO WAIT PLACEMENT. CALL LT IN REACH. BED AND CHAIR ALARM ON FOR SAFETY.
--- NOTE | 2019-09-28 19:25 | NUR ---
PATIENT IN BED AND AWAKE. TALKING WITH FAMILY MEMBERS THAT ARE NOT PRESENT AT THIS TIME. WILL CONTINUE TO MONITOR.
--- NOTE | 2019-09-28 21:38 | NUR ---
PATIENT LYING QUIETLY IN BED.
--- NOTE | 2019-09-28 22:54 | NUR ---
PATIENT TRYING TO CALL FOR HER . ATTENDS CHANGED AND MADELYN CARE COMPLETED.
--- NOTE | 2019-09-29 00:03 | NUR ---
PATIENT WAS TRYING TO GET OUT OF BED TALKING ABOUT NEEDING TO DO SOMETHING TO HER . SHE MOVED TO THE RECLINER WITH THE ASSISTANCE OF THIS RN. CHAIR ALARM ACTIVATED. SHE SEEMS MORE CONTENT NOW.
--- NOTE | 2019-09-29 00:33 | NUR ---
PATIENT LOOKING FOR HER STILL. TRYING TO GET OUT OF THE RECLINER AND ROCKING BACK AND FORTH TRYING TO MOVE IT. PATIENT GIVEN PRN SEROQUEL TO HELP PATIENT CALM DOWN.
--- NOTE | 2019-09-29 01:21 | NUR ---
PATIENT ASSISTED FROM THE RECLINER TO THE BED. ATTENDS CHANGED AND MADELYN CARE COMPLETED.
--- NOTE | 2019-09-29 03:18 | NUR ---
PHYSICIAN COMMUNICATION CONTACTED CASE MANAGERS PHYSICIAN, DR STORY, TO NOTIFY HIM THAT THE PATIENT WAS COMFORT CARE WITH NO IV ACCESS WITH A HIGH LEVEL OF AGGITATION. DR STORY ORDERED ATIVAN 0.5 MG PO X1.
--- NOTE | 2019-09-29 03:25 | NUR ---
0315 PATIENT EXTREMELY AGGITATED. PULLING OFF HER ATTENDS, YELLING, TRYING TO GET OUT OF BED. ORDER OBTAINED FOR ATIVAN. WAITING FOR ORDER VERIFICATION TO GIVE MEDICATION.
--- NOTE | 2019-09-29 04:18 | NUR ---
ATIVAN WAS EFFECTIVE FOR PATIENT'S ANXIETY AND AGGITATION. PATIENT IS NOW SLEEPING.
--- NOTE | 2019-09-29 06:17 | NUR ---
PATIENT SLEEPING COMFORTABLY IN BED
--- NOTE | 2019-09-29 06:38 | NUR ---
SHIFT SUMMARY PATIENT WAS VERY DELUSIONAL AND AGITATED OVERNIGHT. SHE KEPT TRYING TO TALK TO HER BY YELLING OUT FOR HIM, TRYING TO GET OUT OF BED, TAKING OFF ATTENDS, AND NOT BEING COOPERATIVE WITH STAFF. AFTER 0.5 MG PO ATIVAN WAS GIVEN, PATIENT WAS ABLE TO SETTLE DOWN AND GET SOME SLEEP. BED IN LOWEST POSITION WITH WHEELS LOCKED AND ALARM ON. CALL LIGHT WITHIN REACH. REPORT GIVEN TO ONCOMING RN.
--- NOTE | 2019-09-29 17:01 | NUR ---
PATIENTS BROTHER, RYAN, UPDATED. ([phone]).
--- NOTE | 2019-09-29 18:40 | NUR ---
ALERT TO SELF. CONVERSES, BUT DOES NOT MAKE ANY SENCE. ATE FAIRLY WELL FOR BREAKFAST AND LUNCH, BUT REFUSES DINNER. INCREASE ANXIETY IN THE AFTERNOON. UNLABORED RESPIRATIONS. DO NOT NEED TO TURN PATIENT SHE MOVES OFTEN IN BED. ON [place]. [facility]
--- NOTE | 2019-09-29 23:42 | NUR ---
PATIENT IN BED ASLEEP
--- NOTE | 2019-09-30 00:55 | NUR ---
ATTENDS CHANGED, MADELYN CARE COMPLETED, PATIENT REPOSITIONED.
--- NOTE | 2019-09-30 06:34 | NUR ---
SHIFT SUMMARY PATIENT A LOT LESS ANXIOUS AND AGGITATED LAST NIGHT. PATIENT GOT OUT OF BED ONCE OVERNIGHT AND HAD A FEW SNACKS, THEN WENT BACK TO BED AND TO SLEEP AND SLEPT UNTIL MORNING. BED IN LOWEST POSITION WITH WHEELS LOCKED AND ALARM ON. CALL LIGHT WITHIN REACH. REPORT GIVEN TO ONCOMING RN.
--- NOTE | 2019-09-30 17:01 | NUR ---
ALERT TO SELF. MOST CONVERSATIONS DO NOT MAKE ANY SENCE. IN HALLWAY IN RECLINER MOST OF SHIFT AND IS COOPERATIVE. GOOD APPETITE. UNLABORED RESPIRATIONS. NO ACUTE CHANGES. WCTM
--- NOTE | 2019-10-01 06:00 | NUR ---
SHIFT SUMMARY PT IS A 74 Y/O FEMALE, ADMITTED FOR ACCIDENTAL CARBIMEZAPIME OVERDOSE. SHE IS A&O X SELF ONLY, WITH VISUAL AND AUDITORY HALLUCINATIONS. PT CAN BECOME AGITATED AND ANXIOUS AT TIMES, AND WAS MEDICATED ONCE WITH PRN SEROQUEL DURING THE NIGHT FOR AGITATION. NO COMPLAINTS OF PAIN, NAUSEA OR SOB. NO ACUTE CHANGES IN PT CONDITION NOTED. WILL CONTINUE TO MONITOR AND TREAT PER EMAR UNTIL HAND OFF TO DAY SHIFT RN.
--- NOTE | 2019-10-01 10:44 | NUR ---
0800 NOTE SHE IS AWAKENED FOR AN ATTENDS CHANGE. THEY WERE HEAVY WET. SKIN LOOKS INTACT. SHE IS PLEASANTLY CONFUSED. NO DISTRESS.
--- NOTE | 2019-10-01 10:46 | NUR ---
SHE WOKE UP AND ATE SOME BREAKFAST. SHE FED HERSELF. AFTER HER LATE BREAKFAST SHE WAS IN A FOUL MOOD, WANTING A CIGARETTE. I GAVE HER HER AM MEDS INCLUDING A PRN SEROQUEL FOR HER AGITATION. NICOTINE PATCH ALSO PLACED ON HER. SHE KEEPS SAYING SHE IS GOING HOME. I FED HER HER AM MEDS IN STRAWBERRY ICE CREAM. SHE LIKED ME FEEDING IT TO HER.
--- NOTE | 2019-10-01 12:44 | NUR ---
1200 NOTE SHE HAS BEEN AGITATED OFF AND ON, MOSTLY DURING CARE. SHE WANTS TO GO HOME. SHE REMAINS CONFUSED EXCEPT FOR HER NAME. SHE WAS ABLE TO TELL ME THAT SHE WAS IN THE THOUGH.
--- NOTE | 2019-10-01 15:23 | NUR ---
1400 NOTE SHE IS PLEASANTLY CONFUSED.
--- NOTE | 2019-10-01 16:47 | NUR ---
1600 NOTE A LITTLE RESTLESS AGAIN BUT COOPERATIVE. VERY CONFUSED. HAVING HALLUCINATIONS BUT PLEASANT ONES.
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
--- NOTE | 2019-10-01 17:50 | NUR ---
Late Entry From Previous note. Spoke with Bedside RN Leonarda and discussed case. Pt has been having increasing agitation and was experiencing hallucinations earlier today.
--- NOTE | 2019-10-01 18:12 | NUR ---
SHE REMAINS CONFUSED WITH HALLUCINATIONS. SHE HAS HAD PLEASANT HRS AND HAS ALSO HAD AGITATED HRS TODAY. SHE EATS WELL AND VOIDS WELL. SHE REMAINS INCONTINENT. SHE MOVES ABOUT IN THE BED WELL. SHE IS WITHOUT PAIN OR SOB.
--- NOTE | 2019-10-02 06:03 | NUR ---
SHIFT SUMMARY PT IS A 74 Y/O FEMALE, ADMITTED FOR AN ACCIDENTAL CARBAMEZIPIME OD, CURRENTLY ON COMFORT CARE. PT IS A&O X SELF ONLY, WITH A HX OF DEMENTIA, AND OCCASIONAL EPISODES OF AGITATION. SHE IS CURRENTLY 2PA TO THE BS, AND INCONTINENT. PT WAS MEDICATED WITH SCHEDULED SEROQUEL, BUT DID NOT REQUIRE ANY PRN DOSES DURING THE NIGHT. NO COMPLAINTS OF PAIN, NAUSEA OR SOB. NO ACUTE CHANGES IN PT CONDITION NOTED. WILL CONTINUE TO MONITOR AND TREAT PER EMAR UNTIL HAND OFF TO DAY SHIFT RN.
--- NOTE | 2019-10-02 15:41 | NUR ---
Pt resting in bed and is fidgeting with her linen. Listened as Pt expressed anger for being alive and anger towards her father. Continued therapeutic listening and allowed Pt to vent frustrations. Spoke with Bedside RN Brenda and discussed case. Brenda reports the increase in frequency of scheduled seroquel is beneficial. No concerns reported at this time. Palliative Care will remain available.
--- NOTE | 2019-10-02 17:24 | NUR ---
SHIFT SUMMARY NO ACUTE CHANGES THIS SHIFT. PATIENT REMAINS ON COMFORT CARE. SHE IS ALERT AND ORIENTED TO SELF. SHE STATES SHE HAS NO PAIN NOR DISCOMFORT. SHE DID BECOME AGGITATED THIS AFTERNOON AND WAS MEDICATED PER EMAR. BED BATH PERFORMED THIS MORNING, TOLERATED WELL. SHE IS A ONE PERSON ASSIST WITH ALL ADL'S. BED LOW AND LOCKED, CALL LIGHT WITHIN REACH, BED ALARM SET. WILL CONT TO MONITOR.
--- NOTE | 2019-10-03 06:29 | NUR ---
SHIFT SUMMARY PT IS A 74 Y/O FEMALE, ORIGINALLY ADMITTED FOR A CARBAMEZIPIME OD, CURRENTLY COMFORT CARE. PT IS A&O X SELF ONLY, WITH VISUAL AND AUDITORY HALLUCINATIONS, AND EPISODES OF AGITATION AND AGRESSION. PT WAS MEDICATED WITH SCHEDULED SEROQUEL FOR AGITATION AT HS, AND DID NOT NEED AN ADDITIONAL PRN DOSE DURING THE NIGHT. PT SLEPT WELL. NO COMPLAINTS OF PAIN, NAUSEA OR SOB. NO ACUTE CHANGES IN PT CONDITION NOTED. WILL CONTINUE TO MONITOR AND TREAT PER EMAR UNTIL HAND OFF TO DAY SHIFT RN.
--- NOTE | 2019-10-03 17:31 | NUR ---
SHIFT SUMMARY PT HAD A GOOD DAY FOR MOST OF THE DAY. PT BECAME AGITATED WHEN WATCHING THE NEWS. NOTE MADE ON BOARD TO AVOID THIS CHANNEL. PT BATHED THIS SHIFT. UP TO CHAIR TWICE WITH ASSISTANCE. PT DENIES PAIN T/O SHIFT. APPEARS COMFORTABLE IN RECLINER, EATING DINNER & WATCHING TV. WILL CONTINUE TO MONITOR PT COMFORT LEVEL.
--- NOTE | 2019-10-03 19:23 | NUR ---
Review of meds and chages with nursing pt improved will watch for over sedation.
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
--- NOTE | 2019-10-04 09:11 | NUR ---
LEFT MESSAGE WITH BROTHER LEFT MESSAGE WITH BROTHER REQUESTED FOR AN UPDATE. CALL BACK NUMBER LEFT.
--- NOTE | 2019-10-04 17:31 | NUR ---
SHIFT SUMMARY PT MORE AGITATED T/O SHIFT COMPARED TO PREVIOUS DAYS. PT MORE ANXIOUS AND AGITATED IN THE AFTERNOON, LIKELY . PT UP TO CHAIR AND BACK TO BED T/O SHIFT. PT CURRENTLY IN BED EATING DINNER. MEDICATED FOR PAIN ONCE THIS SHIFT. NO OTHER CHANGES IN ASSESSMENT AT THIS TIME. PT RYAN BLAIR UPDATED. WILL CONTINUE TO MONITOR FOR COMFORT UNTIL TURNOVER IS COMPLETE.
--- NOTE | 2019-10-04 23:35 | NUR ---
PT with less anxiety resting listening to relaxing music on cares channel.
--- NOTE | 2019-10-05 07:27 | NUR ---
PT IS RESTING/SLEEPING @ BEDSIDE REPORT. NO S/S PAIN/DISCOMFORT. WILL MX & PROVIDE COMFORT CARE.
--- NOTE | 2019-10-05 09:35 | NUR ---
PT IS AWAKE FOR BF. CONFUSED, ANGRY/IRRITABLE. MAKES MANY BIZZARE STATEMENTS, MAKES KNOWN THAT SHE DOES NOT WANT TO BE HERE & FEELS IMPRISONED. ATTEMPTS TO CALM/REASSURE SOMEWHAT SUCCESSFUL @ THIS TIME. SCHEDULED SEROQUEL & REMERON GIVEN. ASSISTED HER w TV, SHE IS ABLE TO CALM, WILL CONTINUE TO MX & PROVIDE COMFORT CARE.
--- NOTE | 2019-10-05 10:37 | NUR ---
PT @ X'S YELLING OUT FOR FAMILY MEMBERS WHO ARE NOT HERE, DEMANDING TO GO HOME, WE ASSISTED HER TO RECLINER & PLACED IN CATALAN FOR DISTRACTION, SHE HAS CALMED SOMEWHAT @ THIS TIME. NO S/S PAIN.
--- NOTE | 2019-10-05 12:23 | NUR ---
PT CONTINUES AGITATED/IRRITABLE/ANGRY @ X'S, YELLING OUT FREQUENTLY. CONTINUES CONFUSED. WILL GIVE PRN SEROQUEL.
--- NOTE | 2019-10-05 13:56 | NUR ---
PT RESTING QUIETLY @ THIS TIME, SITTING UP IN BED, ASSISTED HER w TV. SHE IS CALM, PRN SEROQUEL EFFECTIVE.
--- NOTE | 2019-10-05 16:09 | NUR ---
SUMMARY PT IS CONFUSED, MAKING BIZZARE STATEMENTS T/O DAY. SHE DOES NOT UNDERSTAND WHY SHE CAN'T GO HOME, CONTINUALLY DEMANDING TO LEAVE, @ X'S YELLING OUT. WE HAVE TRIED MULT DISTRACTIONS & GIVEN PRN SEROQUEL TO HELP HER ANXIETY, SOMEWHAT EFFECTIVE. SHE HAS SPENT PART OF DAY IN CATALAN IN RECLINER WHERE SHE CAN INTERACT w STAFF. APPETITE HAS BEEN GOOD. SHE HAD BM TODAY. DR & CASE MANAGEMENT CONTINUE TO WORK ON SAFE PLACEMENT.
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
--- NOTE | 2019-10-06 07:26 | NUR ---
Patients attends were changed and patient was repostioned and clothes were applied to patient. Chair was offered to patient but she declined at this time.
--- NOTE | 2019-10-06 08:46 | NUR ---
@ onset of shift pt attempting oob w/o assist. yelling for "luz marina!". assisted her to recliner, assisted her to calm, reassured. out in tong where she can interact w staff.
--- NOTE | 2019-10-06 08:49 | NUR ---
FAMILY MEDICINE PHYSICIAN ASSIST PT TO AMBULATE TO BR. ASSISTED BACK TO CHAIR. SHE CONTINUES CONFUSED/DISORIENTED, CONTINUES TO MAKE BIZZARE STATEMENTS. AM MEDS INCLUDING SEROQUEL GIVEN. SHE STATE MILD BACK PAIN, PRN ULTRAM GIVEN. HRR, BREATHING EVEN/UNLABORED.
--- NOTE | 2019-10-06 10:58 | NUR ---
Pt resting in bed with her eyes closed. This RN left Pt undisturbed. Pt appears comfortable with no S/S of distress at this time. Spoke with Bedside RN Chapo and discussed case. Reviewed comfort medications. Chapo reports current regimen is managing Pt's symptoms. Palliative Care will remain available.
--- NOTE | 2019-10-06 12:11 | NUR ---
PT HAS BEEN SLEEPING FOR THE LAST THREE HOURS, OFFERED TO GET PT UP FOR BREAKFAST AND PT REFUSED AND WANTS ME TO SAVE HER LUNH. PT BRIEF IS CLEAN AND DRY. EXPRESSED NO NEEDS AT THIS TIME.
--- NOTE | 2019-10-06 18:04 | NUR ---
SUMMARY PT CONTINUES CONFUSED/DISORIENTED--HX DEMENTIA. SHE HAS PERIODS OF CALM FOLLOWED BY PERIODS OF AGITATION, YELLING, THREATENING. HAVE GIVEN SCHEDULED & PRN SEROQUEL FOR RELIEF w ADEQUATE CONTROL. SHE IS IMPULSIVE DOES NOT USE CALL SYSTEM, HIGH FALL RISK REQUIRING FREQUENT MX. GAIT UNSTEADY, SHE APPEARS TO HAVE PAIN w AMBULATION, STATE BACK PAIN THIS AM. HAVE GIVEN ULTRAM & TYLENOL FOR PAIN CONTROL/RELIEF. PT HAS BEEN UP IN RECLINER [employer] TODAY, PLACED IN CATALAN WHERE SHE CAN INTERACT w STAFF & LOOK OUT WINDOWS. SHE CONTINUES FIXATED ON FINDING HER "SUZANNE".
--- NOTE | 2019-10-07 04:13 | NUR ---
SHIFT SUMMARY PT CONTINUES TO BE CONFUSED. MOOD IS LABILE AT TIMES. PLEASANT MOST OF THE NIGHT WITH STAFF BUT HAS OUTBURTS AT TIMES WHERE SHE YELLS AT STAFF. PT DID HAVE ONE EPISODE THIS AM STATING THAT SHE "SHOULD JUST BE ". PT FREQUENTLY ASKING FOR HER , WHO PER REPORT IS . PT REPORTED PAIN IN LEFT SHOULDER AND BACK AT START OF SHIFT. MEDICATED BEFORE BEDTIME WITH ULTRAM 50 MG. PT SLEPT WELL UNTIL APPROX 0400, WAKING AND REQUESTING TO GET OUT OF BED. REMAINING IN BED AT THIS TIME. PT IS VERY FRAIL AND DECONDITIONED. CONTINENT/INCONTINENT. ATTENDS IN PLACE. NO ACUTE CHANGES THIS SHIFT. PT CONTINUES TO BE A COMFORT CARE STATUS AND AWAITING PLACEMENT.
--- NOTE | 2019-10-07 09:36 | NUR ---
PATIENT HAVING SOME HALLUCINATIONS AND CONFUSION. SHE REPORTS SHE NEEDS HER OR SHE WILL BE LEAVING AND DDIVORCING HIM. I SPOKE WITH HER AND TRIED TO REORIENT HER.
--- NOTE | 2019-10-07 11:35 | NUR ---
PATIENT GIVEN A PRN DOSE OF SEROQUEL. SHE IS STARTING TO GET AGITATED AND SHE WANTS TO BE OUT OF THE HOSPITAL. SPOKE WITH CORINA FROM CARE MANAGEMENT AND AWAITING APPROVAL FOR A [place] CONTRACTED FACILITY.
--- NOTE | 2019-10-07 12:01 | NUR ---
GAVE PATIENT ONE PRN DOSE OF SEOQUEL. THIS IS NOT HELPING THE PATIENT'S MENTATION AND HER WANT TO BE OT OF THE HOSPITAL. SHE HAD BEEN SITTING IN THE HALLWAY IN A RECLINER SHE ASKED TO BE OUT OF THE ROM. SHE IS NOW BACK IN THE ROOM SHE WAS GETTING LOUD AND MILDLY AGITATED. SHE IS BACK IN HER ROOM AND AWAITING TO SEE IF THE SEROQUEL WILL HELP CALM THE PATIENT DOWN.
--- NOTE | 2019-10-07 13:32 | NUR ---
Pt resting in bed upon arrival. Pt engaging in nonsensical conversation and appears angry. Offered therapeutic listening. As this RN is in tong charting Pt was cursing at [facility]. Pt is also impulsive with climbing out of bed. Increasing PRN Seroquel dose may be beneficial if appropriate. Palliative Care will remain available.
--- NOTE | 2019-10-07 14:21 | NUR ---
PATIENT COMPLAINING THAT STAFF ARE HURTING HER. LORELEI ZEEE IN TO SEE THE PATIENT AND SHE IS CALMING DOWN QUITE A BIT. AWAITING TO SEE WHAT THE PLAN IS.
--- NOTE | 2019-10-07 16:32 | NUR ---
shift summary patient is on comfort care. she has been acting out aggressively with language today. she did get up and walk the halls with a walker and gait belt one person assist. she called her brother today. she has had two doses of prn serohernan man has not helped much with her demeanor but will continue to monitor.
--- NOTE | 2019-10-07 17:51 | NUR ---
UNABLE TO COLLECT THE COVID SWAB DUE TO HER CURRENT MENTATION. SHE IS STARTING TO CLEAR AND BE MORE PLEASANT, BUT SHE IS STILL AGITATED. THIS WILL JUST AGITATE HER MORE AND I'M CONCERNED THAT SHE WILL NOT BE REORIENTABLE AFTER A COVID TEST AT THIS TIME.
--- NOTE | 2019-10-07 19:57 | NUR ---
pt just had a bowel movement. pt assisted to commode and got cleaned up. repositioned in bed and given scheduled med. denies pain. currently watching tv.
--- NOTE | 2019-10-08 05:25 | NUR ---
fast food shift supervisor summary pt settled down and slept the whole night after po ativan given. repositioning provided throughout the night. denies pain, nausea and other discomfort. comfort care measures provided.
--- NOTE | 2019-10-08 09:50 | NUR ---
Received an update from nursing. Medication changes were made last evening by . Pt is currently not aggitated this morning. Will remain available.
--- NOTE | 2019-10-08 11:19 | NUR ---
PATIENT IS VERY DEPRESSED RIGHT NOW. SHE IS SITTING IN THE HALLWAY WITH THE STAFF AND TALKING WHILE HAVING A CUP OF COFFEE, ALTHOUGH SHE DOES KEEP REITERATING THAT SHE FEELS SAD.
--- NOTE | 2019-10-08 11:30 | NUR ---
Candy is sitting in a reclining chair in the hallway visiting with staff. Calm at this time.
--- NOTE | 2019-10-08 12:04 | NUR ---
PATIENT STARTING TO GET RILED UP. WILL ASSESS FOR NEED OF MEDICATINO. GOING TO GIVE PATIENT ONE DOSE OF HALDOL.
--- NOTE | 2019-10-08 18:33 | NUR ---
SHIFT SUMMARY PATIENT ON COMFORT CARE. SHE IS STILL AMPED UP. JUST PLACED AN ORDER FOR PO ZYPREXA FOR PATIENT'S AGITATION. SHE IS CURRENTLY SITTING ONE ON ONE WITH THE AID. SHE IS YELLING AND DEMANDING THAT WE GET HER OUT OF THE HOSPITAL. SPOKE WITH DR. MORALES AND HER CURRENT THOUGHT IS PRN ZYPREXA. AWAITING PHARMACY VERIFICATION AND WILL TRY THIS MEDICATION.
--- NOTE | 2019-10-09 05:05 | NUR ---
civil engineering teacher summary pt was tried to get out of bed once at the beginning of my shift. she continued asking for her . pt slept well the entire night after scheduled seroquel given. oral care provided. repositioned throughout the night. denies pain. comfort care measures provided. bed alarm on, call light within reach.
--- NOTE | 2019-10-09 08:24 | NUR ---
PATIENT IS IN A MOOD THIS MORNING. SHE IS ALREADY AGGRESSIVE AND SHE REFUSED HER MEDICATIONS, SHE REFUSED HER BREAKFAST AND AT THIS TIME SHE HAS DECIDED SHE DOES NOT WANT TO DO ANYTHING UNLESS SHE CAN FIND HER . TODAY THE PLAN WOULD BE TO KEEP HER FROM GETTING AGGRESSIVE AND ESCALATING BUT I'M WORRIED SHE CAN GET OUT OF CONTROL.
--- NOTE | 2019-10-09 13:05 | NUR ---
PATIENT IS CURRENTLY IN BED GETTING AGITATED. THE DOSE OF ZYPREXA WAS GIVEN AND THIS DID NOT PHASE HER. SHE IS STILL BECOMING A ONE ON ONE IN ORDER TO PROVIDE CARE AND KEEP HER IN THE BED. NO REORIENTING IS HELPING. SHE WANTS TO LEAVE THE HOSPITAL, I AM CONCERNED SHE WOULD HURT HERSELF OR OTHERS IF SHE WAS TO LEAVE THE HOSPITAL AT THIS TIME.
--- NOTE | 2019-10-09 17:56 | NUR ---
SHIFT SUMMARY PATIENT IS STILL ONLY ALERT TO SELF. SHE DOES KNOW SHE IS IN THE HOSPITAL BUT SHE IS STILL CAUSING HAVOC. SHE DENIES ANY CHEST PAIN OR SHORTNESS OF BREATH. SHE IS REFUSING HER COVID TEST AT THIS TIME. I HAVE SENT A FACE SHEET DOWN TO THE ER FOR DR. ABRAMS FOR ANOTHER PSYCHIATRIC EVALUATION. NOTHING THAT WE HAVE GIVEN HER THIS WEEKEND HAS HELPED CALM HER DOWN DURING THE DAY.
--- NOTE | 2019-10-10 05:33 | NUR ---
AGITATED AND TRIES TO GET OUT OF BED AT THIS TIME. YELLS OUT FOR "SUZANNE" AND "RYAN". RUDE TO STAFF. AWAITING TO RECIEVE ESTUARDO FROM PHARMACY IT IS NOT IN THE [facility].
--- NOTE | 2019-10-10 05:35 | NUR ---
YELLS OUT FOR "RYAN" AND "SUZANNE". TRIES TO GET OUT OF BED AND RUDE TO STAFF. AWAITING TO RECIEVE HALDOL FROM PHARMACY THIS MEDICATION IS NOT IN PEXIS..
--- NOTE | 2019-10-10 05:52 | NUR ---
BLUEPRINT CUTTER SUMMARY PT SLEPT MOST OF THE NIGHT. SHE WOKE UP AROUND 0300 AND WAS CALM AND WATCHED TV. PT STARTED GETTING MORE AGITATED STARTING AT 0500. PT KEPT CALLING OUT FOR AND WANTING TO GET OUT OF THE HOSPITAL. SNACK PROVIDED, HALDOL GIVEN FOR AGITATION. COMFORT CARE MEASURES PROVIDED. REPOSITIONED FREQUENTLY THROUGHOUT THE NIGHT. AWAITING PLACEMENT.
--- NOTE | 2019-10-10 07:00 | NUR ---
PATIENT AWAKE AND CALM AT THIS TIME. A/O TO SELF ONLY. DENIES ANY PAIN. FALL PRECAUTIONS IN PLACE.
--- NOTE | 2019-10-10 09:44 | NUR ---
PATIENT IS CALM AND COOPERATIVE WITH CARE AT THIS TIME. DENIES ANY PAIN OR NEEDS. BED ALARM SET FOR SAFETY. CALL LIGHT WITHIN REACH, PATIENT TENDS TO JUST HOLLER OUT FOR HELP.
--- NOTE | 2019-10-10 11:20 | NUR ---
PATIENT HAS DONE WELL THROUGHOUT THE MORNING, BUT IS NOW VERY ANXIOUS. PATIENT CONFUSED AND THINKS THAT BROTHER IS DONE STAIRS WAITING FOR HER. ZYPREXA GIVEN TO TREAT ANXIETY. PATIENT TOOK PILLS TODAY WITHOUT ANY PROBLEMS. DENIES ANY PAIN OR DISCMOFORT.
--- NOTE | 2019-10-10 14:11 | NUR ---
PATIENT UP IN CHAIR. COOPERATIVE WITH CARE TODAY. ORIENTED TO SELF ONLY. DENIES ANY NEEDS AT THIS TIME.
--- NOTE | 2019-10-10 15:48 | NUR ---
PATIENT SLEEPING AT THIS TIME. BED ALARM SET FOR SAFETY.
--- NOTE | 2019-10-10 18:44 | NUR ---
PATIENT COOPERATIVE WITH CARE THIS SHIFT AND REDIRECTABLE. ZYPREXA GIVEN X1 TODAY FOR MILD ANXIETY WHICH WAS EFFECTIVE. UP IN CHAIR FOR MEALS AND IN THE HALLS FOR SOME OF THIS SHIFT TALKING TO STAFF. TOLERATING DIET AND ABLE TO FEED SELF. SKIN INTACT. BM X2 THIS SHIFT. TRAMADOL GIVEN X1 TODAY FOR HIP PAIN WITH STATED RELIEF. FALL PRECAUTIONS IN PLACE. UP WITH 1 ASSIST AND GB TO RESTROOM. CONT/INCONTIENT TODAY.
--- NOTE | 2019-10-11 05:51 | NUR ---
SHIFT SUMMARY- PT. COMFORT CARE. ALERT WITH CONFUSION, REDIRECTABLE. SCHEDULED MEDS TAKEN W/O DIFFICULTY. NO COMPLAINTS T/O THE SHIFT. PT. HAD A RESTFUL NIGHT, NO APPARENT DISTRESS NOTED. REPOSITIONED PRN AND FOR COMFORT. INCONT, ATTENDS IN PLACE. CALL LIGHT WITHIN REACH, SIDE RAILS UPX2, AND BED ALARM ON FOR SAFETY. WILL CONT TO MONITOR.
--- NOTE | 2019-10-11 13:30 | NUR ---
Review of medication changes with nursing and pt behaviours. pt on seroquel. will check with pharmacy and phsycian if extended realese needed or change in frequency.
--- NOTE | 2019-10-11 16:29 | NUR ---
SHIFT SUMMARY PATIENT ALERT AND COOPERATIVE THIS MORNING. UP IN RECLINER FOR MEALS. REPOSITION REGULARLY FOR COMFORT. PATIENT BECAME AGITATED AND COMBATIVE IN AFTERNOON. PRN ZYPREXA GIVEN WITH LITTLE EFFECT. PATIENT REDIRECTED FREQUENTLY. PATIENT DENIES PAIN, NAUSEA, AND SHORTNESS OF BREATH.
--- NOTE | 2019-10-12 05:13 | NUR ---
SHIFT SUMMARY ASSUMED CARE OF PT AT 1900. PT IS ALERT BUT NOT ORIENTED TO ANYTHING. PT THINKS IS SLEEPING IN THE BED NEXT TO HER. PT THINKS NOISES OUTSIDE HER ROOM ARE CATS OUTSIDE HER HOUSE. PT SLEPT ON AND OFF DURING THE NIGHT. PT WAS INCONTINENT T/O THE NIGHT. NO ACUTE CHANGES, PT SLEPT MOST OF THE NIGHT. CALL LIGHT IN REACH, BED IN LOWEST POSITION, WILL CONTINUE TO MONITOR UNTIL DAYSHIFT NURSE ARRIVES.
--- NOTE | 2019-10-12 17:36 | NUR ---
SHIFT SUMMARY PATIENT DENIES PAIN, NAUSEA, AND SHORNESS OF BREATH. PATIENT MEDICATED X1 FOR AGITATION MIDDAY. PATIENT UP IN CHAIR MOST OF SHIFT. PATIENT OUT IN CATALAN SOCIALIZING WITH STAFF THIS AFTERNOON. CALL LIGHT IN REACH.
--- NOTE | 2019-10-12 19:02 | NUR ---
Spiritual care note: Melinda was angry this afternoon and told me she would kill herself if she could find a way to do it. She ranted about losing her independance and "us" ruining her life. She was very unhappy. I was unable to distract or redirect her. I will remain available.
--- NOTE | 2019-10-12 22:40 | NUR ---
4692 COMFORT CARE APPEARS TO BE RESTING. NO ACUTE NEEDS AT THIS TIME. BED IN LOWEST POSITION; ALARM ON. CALL LIGHT WITHIN REACH. TM.
--- NOTE | 2019-10-13 00:40 | NUR ---
0040 COMFORT CARE APPEARS TO BE RESTING. NO ACUTE NEEDS AT THIS TIME. BED REMAINS IN LOWEST POSITION; ALARM ON. CALL LIGHT IN REACH. TM.
--- NOTE | 2019-10-13 02:47 | NUR ---
0245 COMFORT CARE APPEARS TO BE RESTING COMFORTABLY AT THIS TIME. BED IN LOWEST POSITION WITH CALL LIGHT WITHIN REACH. WILL CONTINUE TO MONITOR.
--- NOTE | 2019-10-13 04:46 | NUR ---
0445 COMFORT CARE PT BECAME INCREASINGLY AGITATED AND ATTEMPTING TO EXIT BED AFTER AWAKING, ORIENTED TO SELF ONLY. PRN ZYPREXA GIVEN WELL A SNACK. CURRENTLY SITTING UP IN BED EATING AND SEEMS TO BE MUCH MORE CALM. DENIES PAIN OR NAUSEA. BED IN LOWEST POSITION WITH CALL LIGHT IN REACH. WILL CONTINUE TO MONITOR.
--- NOTE | 2019-10-13 06:17 | NUR ---
0615 COMFORT CARE APPEARS TO BE RESTING COMFORTABLY IN BED AT THIS TIME. BED IN LOWEST POSITION AND CALL LIGHT WITHIN REACH. WILL CONTINUE TO MONITOR.
--- NOTE | 2019-10-13 06:23 | NUR ---
MOLD UNLOADER SUMMARY ORIENTED TO SELF ONLY, VISUAL HALLUCINATIONS WELL AGITATED AT TIMES. PRN MEDS GIVEN. APPEARED TO BE SLEEPING MOST OF THE SHIFT AND WAS COOPERATIVE WITH TAKING MEDICATIONS. DENIES PAIN OR NAUSEA. BREATHING IS EVEN AND UNLABORED. WILL REPORT TO ONCOMING RN.
--- NOTE | 2019-10-13 17:08 | NUR ---
PT HAS NO REAL CHANGES TODAY. STARTED SHIFT AOX2 WITH CONFUSION, BUT COOPERATIVE. PT DID START TO GET AGITATED AFTER NEEDING A COVID TEST COMPLETED. PT DID NOT TOLERATE THIS WELL, BUT WITH THE AID'S HELP IT WAS COMPLETED. PT TREATED FOR AGITATION PER EMAR. PT HAS BEEN GETTING UP IN CHAIR FOR MEALS AND HAS A CAMERA ON HER. DOES NOT CALL APPROPRIATELY WILL CONTINUE TO MONITOR.
--- NOTE | 2019-10-13 18:54 | NUR ---
COMFORT CARE SITTING UP IN BED WATCHING TV AT THIS TIME. NO C/O DISCOMFORT OR PAIN. BED IN LOWEST POSITION WITH CALL LIGHT IN REACH. WILL CONTINUE TO MONITOR.
--- NOTE | 2019-10-13 19:48 | NUR ---
pt continues to have aggitation in afternoon will update whypician with medications. pt more frail may be able to go to contact center engineer snf if symtoms controlled. pt mosly bedridden.
--- NOTE | 2019-10-13 20:38 | NUR ---
2015 COMFORT CARE SITTING UP IN BED WATCHING TV AT THIS TIME. REPOSITIONED FOR COMFORT AND SNACK GIVEN. PLEASANT MOOD. BED IN LOWEST POSITION WITH CALL LIGHT IN REACH. WILL CONTINUE TO MONITOR.
--- NOTE | 2019-10-13 22:10 | NUR ---
COMFORT CARE APPEARS TO BE RESTING COMFORTABLY IN BED. BED IS IN LOWEST POSITION WITH CALL LIGHT IN REACH. WILL CONTINUE TO MONITOR.
--- NOTE | 2019-10-14 00:24 | NUR ---
APPEARS TO BE RESTING COMFORTABLY IN BED. PT DENIES PAIN OR DISCOMFORT AT THIS TIME. BED IN LOWEST POSTION AND CALL LIGHT WITHIN REACH.
--- NOTE | 2019-10-14 02:22 | NUR ---
COMFORT CARE APPEARS TO BE RESTING COMFORTABLY IN BED. DENIES PAIN OR DISCOMFORT. BED IN LOWEST POSITION WITH CALL LIGHT WITHIN REACH. WILL CONTINUE TO MONITOR
--- NOTE | 2019-10-14 04:10 | NUR ---
COMFORT CARE ATTENDS AND BED LINENS CHANGED. PRN TRAMADOL GIVEN FOR PAIN. PT IS CURRENTLY LYING IN BED IN THE LOWEST POSITION WITH CALL LIGHT IN REACH. WILL CONTINUE TO MONITOR.
--- NOTE | 2019-10-14 05:04 | NUR ---
PROCESS DEVELOPMENT ENGINEER SUMMARY COOPERATIVE WITH CARE AND APPEARED TO SLEEP WELL T/O MOST OF THE NIGHT. C/O PAIN AROUND 0430 AND WAS GIVEN PRN TRAMADOL THAT APPEARED TO HELP. CURRENTLY RESTING IN BED IN LOWEST POSITION WITH CALL LIGHT IN REACH. WILL CONTINUE TO MONITOR AND REPORT TO ONCOMING RN.
--- NOTE | 2019-10-14 06:07 | NUR ---
COMFORT CARE APPEARS TO BE RESTING COMFORTABLY IN BED AT THIS TIME. BED IN LOWEST POSITION AND CALL LIGHT WITHIN REACH. WILL CONTINUE TO MONITOR
[2019-10-14] MEDS ORDERED: SENN187 PO (08:04)
[2019-10-14] MEDS ORDERED: MIRALAX17 GM PO (08:05)
[2019-10-14] MEDS ORDERED: Nicoderm Cq1 EAC1 TOP (08:06)
[2019-10-14] MEDS ORDERED: OLAN10 PO (08:07)
[2019-10-14] MEDS ORDERED: Seroquel Xr50 MG PO (08:13)
--- NOTE | 2019-10-14 10:37 | NUR ---
PT DISCHARGED PT DISCHARGED AT 1000. PT PREMEDICATED PRIOR TO DC. PERSONAL CARE COMPLETED PRIOR TO DC. DC PAPERWORK SENT WITH TRANSPORT. PT TRASPORTED VIA [facility]. CARE MANAGEMENT UPDATED FAMILY ON DC. PT IN PLEASANT MOOD PRIOR TO DC & DENIED COMPLAINTS.
== END 2019-10-14 10:02 | disposition home or self-care (01) ==
LOC: ER 21:48 → MEDS 21:49
PROVIDERS: Emergency Medicine; Internal Medicine; ADMIT Internal Medicine
DX: T42.1X2A Poisoning by iminostilbenes, intentional self-harm, initial encounter (principal); F03.90 Unspecified dementia, unspecified severity, without behavioral disturbance, psychotic disturbance, mood disturbance, and anxiety; I10 Essential (primary) hypertension; F32.9 Major depressive disorder, single episode, unspecified; G40.909 Epilepsy, unspecified, not intractable, without status epilepticus; G92 Toxic encephalopathy; E43 Unspecified severe protein-calorie malnutrition; F17.210 Nicotine dependence, cigarettes, uncomplicated; E86.0 Dehydration; Z68.1 Body mass index [BMI] 19.9 or less, adult; Z66 Do not resuscitate; Z88.8 Allergy status to other drugs, medicaments and biological substances; Z88.6 Allergy status to analgesic agent; Z91.012 Allergy to eggs; Z79.899 Other long term (current) drug therapy
CPT/HCPCS: 36415; 80053; 80156; 84484; 85025; 93005; 93010; 97110; 97162; 97166; 97530; 97535; 99285-25; A9270; G0378; G0480; J1650; J2060; J2405; J3480; J7030; U0002